=== PATIENT | female | born 1940 | race Caucasian/White ===

== ENCOUNTER 2017-11-17 07:54 | Outpatient (CLI) | payer OTHER, MEDICARE | END 2017-11-17 07:55 | disposition home or self-care (01) | LOC: BICMAMMO 07:54 | PROVIDERS: ATTEND Internal Medicine | DX: Z12.31 Encounter for screening mammogram for malignant neoplasm of breast (principal); N95.9 Unspecified menopausal and perimenopausal disorder; M85.80 Other specified disorders of bone density and structure, unspecified site | CPT/HCPCS: 77063; 77067; 77080 ==

== ENCOUNTER 2018-04-12 18:06 | Emergency (ER) | payer MEDICARE ==
[2018-04-12] MEDS ORDERED: Acetaminophen 325 MG TAB ONE (19:25)
== END 2018-04-12 19:29 | disposition home or self-care (01) ==
LOC: ERS 18:06
DX: M62.838 Other muscle spasm (principal); I10 Essential (primary) hypertension; Z79.899 Other long term (current) drug therapy
CPT/HCPCS: 99283

== ENCOUNTER 2018-06-17 21:01 | Emergency (ER) | payer MEDICARE | END 2018-06-17 21:55 | disposition home or self-care (01) | LOC: ERS 21:01 | DX: L30.3 Infective dermatitis (principal); I10 Essential (primary) hypertension; M19.90 Unspecified osteoarthritis, unspecified site; Z79.899 Other long term (current) drug therapy | CPT/HCPCS: 99282 ==

== ENCOUNTER 2018-09-03 05:27 | Emergency (ER) | payer MEDICARE | END 2018-09-03 06:17 | disposition home or self-care (01) | LOC: ERS 05:27 | DX: L30.4 Erythema intertrigo (principal); I10 Essential (primary) hypertension; M19.90 Unspecified osteoarthritis, unspecified site; Z79.899 Other long term (current) drug therapy | CPT/HCPCS: 36416; 99283 ==

== ENCOUNTER 2018-10-05 16:40 | Observation (INO) | payer MEDICARE ==
[~2018-10-05 16:40] MED LIST: ISOVUE-370 76%-LOCM 1 ML ONE
[2018-10-05 17:14] LABS: #Eosinphils 0.1 thou/uL (0.0-0.7); #Lymphocytes 1.1 thou/uL (1.20-3.40); #Monocytes 0.7 thou/uL (0.11-0.59); #Neutrophils 10.5 thou/uL (1.40-6.50); %Basophils 0.3 % (0.0-1.0); %Eosinophils 0.9 % (0.0-10.0); %Lymphocytes 8.7 % (21.0-51.0); %Monocytes 5.9 % (0.0-10.0); %Neutrophils 84.2 % (42.0-75.0); Hemoglobin 13.1 g/dL (12.0-16.0); Mean Corpuscular HGB CONC 33.3 g/dL (32.0-36.0); Mean Corpuscular Hemoglobin 30.1 pg (27.0-31.0); Mean Corpuscular Volume 90.3 fL (78.0-98.0); Mean Platelet Volume 9.1 fL (7.4-10.4); Platelet Count 219 thou/uL (130-400); RBC Distribution Width 13.3 % (11.5-14.5); Red Blood Cell (RBC) Count 4.34 mill/uL (4.20-5.40); White Blood Cell (WBC) Count 12.5 thou/uL (4.8-10.8)
[2018-10-05 17:34] LABS: ALT (SGPT) 7 U/L (8-55); AST (SGOT) 15 U/L (5-34); Albumin 3.6 g/dL (3.4-4.8); Alkaline Phosphatase 82 U/L (40-150); Anion Gap 12 mmol/L (10-20); BUN (Urea Nitrogen) 15 mg/dL (9.8-20.1); Bilirubin, Total 2.5 mg/dL (0.2-1.2); Calc. Creatinine Clearance 0 mL/min (70-130); Calcium 8.9 mg/dL (7.8-10.44); Carbon Dioxide 24 mmol/L (23-31); Chloride 105 mmol/L (98-107); Estimated GFR-MDRD 55; Globulin 3.2 g/dL (2.4-3.5); Glucose 106 mg/dL (83-110); Potassium 4.2 mmol/L (3.5-5.1); Protein, Total 6.8 g/dL (6.0-8.3); Sodium 137 mmol/L (136-145)
[2018-10-05] MEDS ORDERED: Morphine 4 MG/ML VIAL ONE (17:56)
[2018-10-05] MEDS ORDERED: Acetaminophen 500 MG TAB ONE (17:57)
[2018-10-05] MEDS ORDERED: Piperacillin/Tazobactam 3.375 GM VIAL ONE (17:57)
--- NOTE | 2018-10-05 18:30 | RAD ---
PORTABLE CHEST: 10/05/18 HISTORY: Back and neck pain as well as fever and cough. Heart size appears slightly enlarged. Mediastinal structures are unremarkable. Retrocardiac region is difficult to assess but no focal infiltrative process. IMPRESSION: Mild cardiomegaly. POS: [facility]
[2018-10-05 18:47] LABS: Lipase Less than 4 U/L (8-78); Magnesium 1.7 mg/dL (1.6-2.6)
--- NOTE | 2018-10-05 19:18 | CT ---
FCT abdomen and pelvis with IV contrast. Oral contrast was not administered. INDICATIONS: Abdominal pain COMPARISON: None FINDINGS: Lung bases are clear Liver, spleen, and pancreas appear unremarkable. Stomach and duodenum appear unremarkable. Adrenal glands appear normal. Kidneys appear unremarkable. Collecting structures and urinary bladder appear unremarkable. Small bowel loops are normal caliber and exhibit normal fold pattern. Appendix not identified. Colon is nondistended and poorly evaluated. Diverticulosis of the left colon and sigmoid noted. Aorta is normal caliber. No evidence of retroperitoneal or mesenteric adenopathy. Patient appears to be posthysterectomy. Subcutaneous tissues, abdominal wall, and muscular structures appear unremarkable. Osseous structures appear unremarkable. IMPRESSION: No acute findings
[2018-10-05 20:03] LABS: Bilirubin Small (Negative); Blood, Urine Negative (Negative); Clarity CLOUDY (Clear); Glucose, Urine (Dipstick) Negative (Negative); Leukocyte Small (Negative); Nitrite Negative (Negative); Protein, Urine (Dipstick) Trace mg/dL (Neg-Trace); Specific Gravity, Urine 1.037 (1.002-1.036); pH, Urine 5.5 (5.0-9.0)
[2018-10-05 20:05] LABS: Bacteria/HPF None Seen HPF (None Seen); Hyaline Casts/LPF 4-6 HYALINE CAST LPF (0-3 Hyaline); RBC/HPF 0-3 HPF (0-3)
[2018-10-05] MEDS ORDERED: Ondansetron PF 4 MG/2 ML Vial ONE (21:23)
[2018-10-06] MEDS ORDERED: Ondansetron ODT 4 MG TAB SL PRN (00:38)
[2018-10-06] MEDS ORDERED: Fentanyl 100 MCG/2 ML VIAL SLOW IVP PRN (00:38)
[2018-10-06] MEDS ORDERED: Ondansetron PF 4 MG/2 ML Vial IVP PRN ×2 (00:38→07:26)
[2018-10-06] MEDS ORDERED: Sodium Chloride 0.45% 1,000 ML IV SCH (00:45)
[2018-10-06 02:24] VITALS: BMI 44.9
[2018-10-06] MEDS ORDERED: Acetaminophen 325 MG TAB PO PRN (07:26)
[2018-10-06] MEDS ORDERED: Eucerin (Mineral Oil/Petrolatum,White) 30 gm Jar TOP PRN (07:26)
[2018-10-06] MEDS ORDERED: HYDROcodone/Acetaminophen 5/325 mg Tablet PO PRN (07:26)
[2018-10-06] MEDS ORDERED: Senokot S 8.6-50 MG TAB PO PRN (07:26)
[2018-10-06] MEDS ORDERED: Ondansetron ODT 4 MG TAB PO PRN (07:26)
[2018-10-06] MEDS ORDERED: Loratadine 10 MG TAB PO PRN (07:26)
[2018-10-06] MEDS ORDERED: Artificial Tears 18 DROP/0.9 ML EA EYE PRN (07:26)
[2018-10-06] MEDS ORDERED: Sodium Chloride 0.65% Nasal 44 ML BOT EA NARE PRN (07:26)
[2018-10-06] MEDS ORDERED: Calcium Carbonate 500 MG ChewTAB PO PRN (07:26)
[2018-10-06] MEDS ORDERED: Morphine 2 MG/ML SYRINGE SLOW IVP PRN ×2 (07:26→09:26)
[2018-10-06] MEDS ORDERED: Bisacodyl 10 MG SUPP PR PRN (07:26)
[2018-10-06] MEDS ORDERED: Zolpidem Tartrate 5 MG TAB PO PRN (07:26)
[2018-10-06] MEDS ORDERED: Diabetic Tussin 200 MG/10 ML UDCUP PO PRN (07:26)
[2018-10-06] MEDS ORDERED: hydrALAZINE 20 MG/ML VIAL SLOW IVP PRN (07:26)
[2018-10-06] MEDS ORDERED: Cepastat Lozenges 1 LOZ PO PRN (07:26)
[2018-10-06] MEDS ORDERED: Loperamide HCl 2 MG CAP PO PRN (07:26)
[2018-10-06] MEDS ORDERED: Sodium Chloride 0.9% 1,000 ML IV SCH (07:30)
[2018-10-06] MEDS: Nebivolol HCl 5 MG TAB PO SCH (08:52)
[2018-10-06] MEDS: Saccharomyces boulardii 250 MG CAP PO SCH (08:52)
[2018-10-06] MEDS: Famotidine 20 MG TAB PO SCH ×2 (08:52→21:14)
[2018-10-06] MEDS: Piperacillin/Tazobactam 3.375 GM in Sodium Chloride 0.9% 100 ML IVPB SCH ×3 (08:55→19:50)
[2018-10-06] MEDS: Sodium Chloride 0.9% 1,000 ML IV SCH ×2 (08:57→14:20)
[2018-10-06] MEDS ORDERED: Ketorolac Tromethamine 30 MG/ML VIAL IVP PRN (09:26)
--- NOTE | 2018-10-06 10:17 | HP ---
PRIMARY CARE PHYSICIAN: Vanessa Gan MD REASON FOR ADMISSION: Urinary tract infection. HISTORY OF PRESENT ILLNESS: A 78-year-old female, who has underlying history of diverticulosis, hypertension, osteoarthritis, who presented to emergency room for multiple complaints. She was having lower back pain, shoulder pain, and right side of neck pain. The patient also has very bad pain in her right knee. Because of all this pain, she was having difficulty with ambulation. She reports that she has osteoarthritis and she has chronic pain, but for last 1 week she is experiencing more pain. She also had episode of diarrhea at home and she was having vague abdominal discomfort, but she denies any particular point of left lower quadrant tenderness. She denies any bladder discomfort. She denies any CVA tenderness. She denies any chills or fever at home, but in the emergency room, when she presented at that time, her temperature was 101.5. She had CT abdomen and pelvis, which was unremarkable and her chest x-ray was unremarkable. Her urinalysis was suspected for UTI, but the patient does not have any UTI symptoms. In the emergency room, the patient has received Zosyn, morphine, Zofran, IV fluids, and Tylenol, and subsequently, she was admitted to medical floor for observation. This morning, the patient is still having similar vague musculoskeletal pain diffusely. Other than that, the patient does not have any new complaints. REVIEW OF SYSTEMS: CONSTITUTIONAL: Negative for weight loss or gain, ability to conduct usual activities. SKIN: Negative for rash, itching. EYES: Negative for double vision, pain. ENT/MOUTH: Negative for nose bleeding, neck stiffness, pain, tenderness. CARDIOVASCULAR: Negative for palpitations, dyspnea on exertion, orthopnea. RESPIRATORY: Negative for shortness of breath, wheezing, cough, hemoptysis, fever or night sweats. GASTROINTESTINAL: Negative for poor appetite, abdominal pain, heartburn, nausea, vomiting, constipation, or diarrhea. GENITOURINARY: Negative for urgency, frequency, dysuria, nocturia. MUSCULOSKELETAL: Negative for pain, swelling. NEUROLOGIC/PSYCHIATRIC: Negative for anxiety, depression. ALLERGY/IMMUNOLOGIC: Negative for skin rash, bleeding tendency. Please see my HPI for pertinent positive and negative. All other review of systems reviewed and negative except as mentioned in HPI. PAST MEDICAL HISTORY: Diverticulosis, history of herpes zoster, osteoarthritis, hypertension, morbid obesity with BMI 45, chronic low back pain. PAST SURGICAL HISTORY: Right knee replacement, hysterectomy, bladder suspension, appendicectomy, cholecystectomy, tonsillectomy. PAST PSYCHIATRIC HISTORY: Anxiety and depression. SOCIAL HISTORY: The patient is living at home by herself. No history of tobacco, alcohol, or illicit drug abuse. FAMILY HISTORY: No family history of coronary artery disease, stroke, or cancer. ALLERGIES: LISINOPRIL, GIVES ANAPHYLACTIC REACTION. CURRENT HOME MEDICATIONS: Bystolic 20 mg p.o. daily. EMERGENCY ROOM COURSE: The patient received Zofran, morphine, IV fluids, Tylenol, and Zosyn. PHYSICAL EXAMINATION: VITAL SIGNS: On arrival; blood pressure 171/77, pulse 85, respiratory rate 23, temperature 101.5, saturation 94% on room air, weight 106.5 kg. GENERAL: The patient is currently alert, oriented, no obvious acute distress. HEENT: Head; normocephalic, atraumatic. Eyes; pupils round, reactive to light. Extraocular muscle intact. ENT; oropharynx within normal limits. Moist mucous membranes. No oral lesion. No pharyngeal erythema. No exudate. NECK: Supple. No JVD. No thyromegaly. No carotid bruit. No jugular venous distention. LUNGS: Clear to auscultation without any rhonchi or rales. CARDIAC: S1 and S2 regular. No murmur. No gallop. No rub. ABDOMEN: Soft. Bowel sounds present. No tenderness in any quadrant including no tenderness in suprapubic area. BACK: No CVA tenderness. EXTREMITIES: Upper extremity passive movement of all joints are normal. Lower extremity, no edema. Good distal pulsation. MUSCULOSKELETAL EXAMINATION: The patient does have lower back tenderness, shoulder tenderness as well as knee tenderness, but no local abnormal examination finding other than just subjective discomfort and tenderness. NEUROLOGIC: Nonfocal examination. SKIN: No skin rash. HEMATOLOGICAL SYSTEM: No lymphadenopathy. SIGNIFICANT LABORATORY DATA: EKG showing normal sinus rhythm, within normal limits. Chest x-ray showing mild cardiomegaly. CT abdomen and pelvis showing no acute abdominal process. Significant labs; WBC 12.5, hemoglobin 13.1, platelet 219. BMP; sodium 137, potassium 4.2, chloride 105, carbon dioxide 24, BUN 15, creatinine 0.98, glucose 106, calcium 8.9, magnesium 1.7. Lactic acid 1.7, bilirubin 2.5, AST 15, ALT 7, alkaline phosphatase 82, albumin 3.6, lipase less than 4. Troponin 0.014. Urinalysis suggestive of UTI. Blood culture negative. Influenza negative. ASSESSMENT AND PLAN: 1. Sepsis. The patient has fever 101 on admission, leukocytosis, left shift. Source of infection is unclear, but suspecting urinary tract infection. On examination, the patient does not have any left lower quadrant tenderness. Does not suspect any diverticulitis, though she has a history of diverticulosis. Her chest x-ray is normal. Her flu screen is negative. At this point, we will continue with Zosyn, which was started in the emergency room. We will follow up on culture result. We will send urine culture as well. 2. Urinary tract infection. This is likely the cause of fever and sepsis criteria. We are continuing Zosyn and will follow up on culture result and on discharge, we will consider changing to fluoroquinolones. 3. Polyarthritis with polyarthralgia as well as history of osteoarthritis. We will check uric acid tomorrow and CRP tomorrow. We will control her pain with morphine and Toradol and we will consider PT/OT evaluation. This patient has osteoarthritis and this needs symptomatic treatment. Does not have any local pathology. 4. Hypertension. We will continue Bystolic 20 mg p.o. daily. 5. Morbid obesity with BMI of 45. Dietary education given. Weight loss education given. Healthy lifestyle measure discussed with the patient. 6. Deep venous thrombosis prophylaxis not needed, because we are expecting discharge in 24 to 48 hours. 7. Gastrointestinal prophylaxis. Pepcid 20 mg p.o. b.i.d. CODE STATUS: The patient is full code. The patient does not have any surrogate decision maker. DISPOSITION PLAN: The patient does not want to go to rehab and that is why in that case, we will consider discharging her home in 24 to 48 hours. Job ID: [id number]
[2018-10-07] MEDS: Piperacillin/Tazobactam 3.375 GM in Sodium Chloride 0.9% 100 ML IVPB SCH ×2 (01:58→08:15)
[2018-10-07 04:20] LABS: #Eosinphils 0.4 thou/uL (0.0-0.7); #Lymphocytes 1.3 thou/uL (1.20-3.40); #Monocytes 0.8 thou/uL (0.11-0.59); #Neutrophils 3.3 thou/uL (1.40-6.50); %Basophils 0.7 % (0.0-1.0); %Eosinophils 6.9 % (0.0-10.0); %Lymphocytes 21.7 % (21.0-51.0); %Neutrophils 56.7 % (42.0-75.0); Hemoglobin 11.8 g/dL (12.0-16.0); Mean Corpuscular HGB CONC 32.9 g/dL (32.0-36.0); Mean Corpuscular Hemoglobin 30.5 pg (27.0-31.0); Mean Corpuscular Volume 92.7 fL (78.0-98.0); Mean Platelet Volume 9.2 fL (7.4-10.4); Platelet Count 175 thou/uL (130-400); RBC Distribution Width 13.3 % (11.5-14.5); Red Blood Cell (RBC) Count 3.86 mill/uL (4.20-5.40); White Blood Cell (WBC) Count 5.8 thou/uL (4.8-10.8)
[2018-10-07 04:39] LABS: Anion Gap 9 mmol/L (10-20); BUN (Urea Nitrogen) 15 mg/dL (9.8-20.1); Calc. Creatinine Clearance 72 mL/min (70-130); Calcium 8.3 mg/dL (7.8-10.44); Carbon Dioxide 27 mmol/L (23-31); Chloride 110 mmol/L (98-107); Estimated GFR-MDRD 47; Glucose 91 mg/dL (83-110); Potassium 4.1 mmol/L (3.5-5.1); Sodium 142 mmol/L (136-145); Uric Acid 4.6 mg/dL (2.6-6.0)
[2018-10-07] MEDS: Sodium Chloride 0.9% 1,000 ML IV SCH (06:49)
[2018-10-07] MEDS: Famotidine 20 MG TAB PO SCH (08:18)
[2018-10-07] MEDS: Saccharomyces boulardii 250 MG CAP PO SCH (08:18)
[2018-10-07 09:17] VITALS: BP 154/90; TEMP 98.1
--- NOTE | 2018-10-07 10:12 | DIS ---
DATE OF ADMISSION: 10/05/2018 DATE OF DISCHARGE: 10/07/2018 PRIMARY CARE PHYSICIAN: Vanessa Gan MD. DISCHARGE DISPOSITION: Home. PRIMARY DISCHARGE DIAGNOSES: 1. Sepsis, resolved. 2. Urinary tract infection. SECONDARY DISCHARGE DIAGNOSES: 1. Osteoarthritis. 2. Morbid obesity. 3. Hypertension. 4. Chronic low back pain. PRIMARY PROCEDURE/OPERATION: None. RADIOLOGICAL INVESTIGATION: CT abdomen and pelvis, chest x-ray. SIGNIFICANT LABORATORY DATA: Hemoglobin 11.8. ESR 21. Creatinine 1.12. CRP 4.9. Urinalysis suggestive UTI. Blood culture negative. Influenza negative. Urine culture negative. DISCHARGE MEDICATIONS: New medication, Levaquin 750 mg p.o. daily. Florastor 250 mg p.o. daily for 5 days, Tylenol No.3 one or two tablets q.6 hourly p.r.n. for pain, and Bystolic 20 mg p.o. daily. CONTRAINDICATION: None. CODE STATUS: Full code. INPATIENT DETENTION DEPUTY: None. ALLERGIES: LISINOPRIL. DISCHARGE PLAN: Posthospital, the patient will follow up with primary care physician in 1 or 2 weeks. HOSPITAL COURSE: A 78-year-old female, who was admitted by me yesterday. Please see my HPI for further details. From emergency room, the patient was admitted for diverticulitis early, but clinically, the patient was not having any left lower quadrant pain and the patient reported to me no pain in her abdomen. Even she was not having any UTI symptoms, but her urinalysis was suspected for UTI. Initially when she came to emergency room, she was having leukocytosis and high-grade fever and that is why she was meeting sepsis criteria. The patient was afebrile while in the hospital. We treated her with Zosyn while in the hospital and she was given IV fluid. Upon discharge, we changed to levofloxacin. The patient's main problem was chronic low back pain and osteoarthritis pain, but this is chronic problem, and I advised the patient to follow up with primary care physician. I have given offering also giving Cymbalta medication, but she does not want to take those medication. Upon discharge, we prescribed Tylenol No.3. The patient is seen and examined at bedside today. Her examination is normal. Her labs are normal today. Discharge instruction given to the patient at bedside. Her physical examination is normal and her vitals are stable. All new medication prescription is sent to her pharmacy. Job ID: [id number]
--- NOTE | 2018-10-07 10:53 | PDOC.PN ---
- Subjective Encounter Start Date: 10/07/18 Encounter Start Time: 08:30 Patient seen and examined. No new complaints. No overnight events - Objective Resuscitation Status - Order Detail: 10/06/18 07:23 Resuscitation Status Routine Resuscitation Status: FULL: Full Resuscitation MAR Reviewed: Yes Vital Signs & Weight: Vital Signs (12 hours) Temp Pulse Resp BP BP BP Pulse Ox 10/07/18 08:00 98.1 F 60 18 154/90 H 154/90 H 92 L 10/07/18 03:47 97.7 F 58 L 16 148/78 H 92 L 10/06/18 23:42 98.1 F 63 12 140/68 93 L Weight Weight 246 lb I&O: 10/06/18 10/07/18 10/08/18 06:59 06:59 06:59 Intake Total 240 2009 137.5 Balance 240 2009 137.5 Result Diagrams: 10/07/18 04:09 10/07/18 04:09 Phys Exam - Physical Examination Constitutional: NAD HEENT: PERRLA, moist MMs, sclera anicteric Neck: no JVD, supple Respiratory: no wheezing, no rales, no rhonchi Cardiovascular: RRR, no significant murmur, no rub Gastrointestinal: soft, non-tender, no distention, positive bowel sounds Musculoskeletal: no edema, pulses present Neurological: non-focal, normal sensation, moves all 4 limbs Psychiatric: normal affect, A&O x 3 Dx/Plan (1) Sepsis Code(s): A41.9 - SEPSIS, UNSPECIFIED ORGANISM Status: Acute (2) UTI (urinary tract infection) Status: Acute (3) Chronic low back pain Code(s): M54.5 - LOW BACK PAIN; G89.29 - OTHER CHRONIC PAIN Status: Chronic (4) Hypertension Code(s): I10 - ESSENTIAL (PRIMARY) HYPERTENSION Status: Chronic (5) Morbid obesity with BMI of 45.0-49.9, adult Code(s): E66.01 - MORBID (SEVERE) OBESITY DUE TO EXCESS CALORIES; Z68.42 - BODY MASS INDEX (BMI) 45.0-49.9, ADULT Status: Chronic (6) Osteoarthritis Code(s): M19.90 - UNSPECIFIED OSTEOARTHRITIS, UNSPECIFIED SITE Status: Chronic - Plan cont current plan of care, continue antibiotics * medication reviewed as below * symptomatic treatment * see discharge selina. Review of Systems - Review of Systems ENT: negative: Ear Pain, Ear Discharge, Nose Pain, Nose Discharge, Nose Congestion, Mouth Pain, Mouth Swelling, Throat Pain, Throat Swelling, Other Respiratory: negative: Cough, Dry, Shortness of Breath, Hemoptysis, SOB with Excertion, Pleuritic Pain, Sputum, Wheezing Cardiovascular: negative: chest pain, palpitations, orthopnea, paroxysmal nocturnal dyspnea, edema, light headedness, other Gastrointestinal: negative: Nausea, Vomiting, Abdominal Pain, Diarrhea, Constipation, Melena, Hematochezia, Other Genitourinary: negative: Dysuria, Frequency, Incontinence, Hematuria, Retention , Other Musculoskeletal: negative: Neck Pain, Shoulder Pain, Arm Pain, Back Pain, Hand Pain, Leg Pain, Foot Pain, Other - Medications/Allergies Allergies/Adverse Reactions: Allergies Allergy/AdvReac Type Severity Reaction Status Date / Time lisinopril [From Zestril] Allergy Verified 10/06/18 03:48 Medications: Current Medications Acetaminophen (Tylenol) 650 mg PO Q4H PRN PRN Reason: Headache/Fever/Mild Pain (1-3) Last Admin: 10/06/18 13:39 Dose: 650 mg Hydrocodone Bitart/Acetaminophen ([place] 5/325) 1 tab PO Q4H PRN PRN Reason: Moderate Pain (4-6) Artificial Tears (Tears Naturale) 2 drop EA EYE PRN PRN PRN Reason: Dry Eyes Bisacodyl (Dulcolax) 10 mg RI DAILYPRN PRN PRN Reason: Constipation Calcium Carbonate (Tums) 1,000 mg PO Q4H PRN PRN Reason: Heartburn or Indigestion Famotidine (Pepcid) 20 mg PO BID [facility] Last Admin: 10/07/18 08:18 Dose: 20 mg Guaifenesin (Robitussin Sf) 200 mg PO Q4H PRN PRN Reason: Cough Hydralazine HCl (Apresoline) 10 mg SLOW IVP Q4H PRN PRN Reason: SBP > 180 and HR < 70 Piperacillin Sod/Tazobactam (Sod 3.375 gm/ Sodium Chloride) 100 mls @ 200 mls/ hr IVPB 0200,0800,1400,2000 [facility] Last Admin: 10/07/18 08:15 Dose: 100 mls Ketorolac Tromethamine (Toradol) 15 mg IVP Q6H PRN PRN Reason: Pain Stop: 10/11/18 09:27 Loperamide HCl (Imodium) 2 mg PO PRN PRN PRN Reason: Diarrhea/Loose Stools Loratadine (Claritin) 10 mg PO DAILYPRN PRN PRN Reason: Sinus Symptoms Mineral Oil/White Petrolatum (Eucerin Cream) 0 gm TOP BIDPRN PRN PRN Reason: Dry Skin Morphine Sulfate (Morphine) 2 mg SLOW IVP Q4H PRN PRN Reason: Severe Pain (7-10) Morphine Sulfate (Morphine) 2 mg SLOW IVP Q4H PRN PRN Reason: Pain Nebivolol (Bystolic) 20 mg PO DAILY [facility] Last Admin: 10/06/18 08:52 Dose: 20 mg Ondansetron HCl (Zofran Odt) 4 mg PO Q6H PRN PRN Reason: Nausea/Vomiting Last Admin: 10/07/18 10:01 Dose: 4 mg Ondansetron HCl (Zofran) 4 mg IVP Q6H PRN PRN Reason: Nausea/Vomiting Saccharomyces Boulardii (Florastor) 250 mg PO DAILY [facility] Last Admin: 10/07/18 08:18 Dose: 250 mg Senna/Docusate Sodium (Senokot S) 2 tab PO BID PRN PRN Reason: Constipation Sodium Chloride ([place] Nasal [place] 0.65%) 0 ml EA NARE QIDPRN PRN PRN Reason: Nasal Congestion Throat Lozenges (Cepastat Lozenges) 1 mary PO Q2H PRN PRN Reason: Sore Throat Zolpidem Tartrate (Ambien) 5 mg PO HSPRN PRN PRN Reason: Insomnia
[2018-10-07] MEDS: Nebivolol HCl 5 MG TAB PO SCH (11:35)
== END 2018-10-07 11:42 | disposition home or self-care (01) ==
LOC: ERS 16:40 → ONC 21:57
PROVIDERS: ADMIT Hospitalist; ATTEND Hospitalist
DX: A41.9 Sepsis, unspecified organism (principal); N39.0 Urinary tract infection, site not specified; I10 Essential (primary) hypertension; M19.90 Unspecified osteoarthritis, unspecified site; K57.90 Diverticulosis of intestine, part unspecified, without perforation or abscess without bleeding; G89.29 Other chronic pain; M54.5 Low back pain; F41.9 Anxiety disorder, unspecified; F32.9 Major depressive disorder, single episode, unspecified; E66.01 Morbid (severe) obesity due to excess calories; Z68.42 Body mass index [BMI] 45.0-49.9, adult; Z79.899 Other long term (current) drug therapy; Z88.8 Allergy status to other drugs, medicaments and biological substances
CPT/HCPCS: 71045; 74177; 80048; 80053; 82248; 83605; 83690; 83735; 84484; 84550; 85025 ×2; 85652; 86140; 87040; 87086; 87804 ×2; 93005; 96361 ×3; 96365; 96366 ×2; 96375; 97139; 99285; G0378 ×2; 36415; 81003; 81015; J2270; J2405; J2543; J7050; Q0162; Q9966

== ENCOUNTER 2018-12-22 11:26 | Emergency (ER) | payer MEDICARE ==
--- NOTE | 2018-12-22 13:09 | RAD ---
PA AND LATERAL VIEWS OF THE CHEST: HISTORY: Cough. FINDINGS: Exam is made with the exam of 10/05/2018. The heart is enlarged. The aorta is tortuous. The lungs are expanded without focal areas of consoli dation, pneumothoraces, mariam pulmonary edema, or pleural effusions. There are degenerative changes in the spine. IMPRESSION: No radiographic evidence of acute cardiopulmonary process. POS: [facility]
[2018-12-22 13:21] LABS: #Basophils 0.1 thou/uL (0.0-0.2); #Eosinphils 0.4 thou/uL (0.0-0.7); #Lymphocytes 1.8 thou/uL (1.20-3.40); #Monocytes 0.8 thou/uL (0.11-0.59); %Basophils 0.6 % (0.0-1.0); %Eosinophils 4.2 % (0.0-10.0); %Lymphocytes 20.2 % (21.0-51.0); %Monocytes 8.8 % (0.0-10.0); %Neutrophils 66.2 % (42.0-75.0); Hemoglobin 13.2 g/dL (12.0-16.0); Mean Corpuscular HGB CONC 32.4 g/dL (32.0-36.0); Mean Corpuscular Hemoglobin 29.9 pg (27.0-31.0); Mean Corpuscular Volume 92.2 fL (78.0-98.0); Mean Platelet Volume 8.9 fL (7.4-10.4); Platelet Count 244 thou/uL (130-400); RBC Distribution Width 13.5 % (11.5-14.5); Red Blood Cell (RBC) Count 4.42 mill/uL (4.20-5.40)
[2018-12-22 13:42] LABS: ALT (SGPT) 10 U/L (8-55); AST (SGOT) 14 U/L (5-34); Albumin 3.7 g/dL (3.4-4.8); Alkaline Phosphatase 85 U/L (40-150); Anion Gap 12 mmol/L (10-20); BUN (Urea Nitrogen) 16 mg/dL (9.8-20.1); Bilirubin, Total 1.8 mg/dL (0.2-1.2); CK (CPK) 111 U/L (29-168); Calc. Creatinine Clearance 0 mL/min (70-130); Calcium 9.1 mg/dL (7.8-10.44); Carbon Dioxide 25 mmol/L (23-31); Chloride 106 mmol/L (98-107); Estimated GFR-MDRD 62; Globulin 3.2 g/dL (2.4-3.5); Glucose 87 mg/dL (83-110); Potassium 4.1 mmol/L (3.5-5.1); Protein, Total 6.9 g/dL (6.0-8.3); Sodium 139 mmol/L (136-145)
== END 2018-12-22 15:21 | disposition home or self-care (01) ==
LOC: ERS 11:26
DX: J06.9 Acute upper respiratory infection, unspecified (principal); I10 Essential (primary) hypertension; M19.90 Unspecified osteoarthritis, unspecified site; F41.9 Anxiety disorder, unspecified; F32.9 Major depressive disorder, single episode, unspecified; Z79.899 Other long term (current) drug therapy
CPT/HCPCS: 36415; 71046; 80053; 82550; 83880; 84484; 85025; 87081; 87430; 93005; 94640; J7620

== ENCOUNTER 2019-05-14 13:19 | Inpatient (IN) | payer MEDICARE ==
[~2019-05-14 13:19] MED LIST changes: -ISOVUE-370 76%-LOCM 1 ML ONE; +Iopamidol 370 76% 100 ML VIAL ONE
[2019-05-14 15:36] LABS: #Basophils 0.1 thou/uL (0.0-0.2); #Eosinphils 0.3 thou/uL (0.0-0.7); #Lymphocytes 1.5 thou/uL (1.20-3.40); #Monocytes 1.2 thou/uL (0.11-0.59); #Neutrophils 8.9 thou/uL (1.40-6.50); %Basophils 0.5 % (0.0-1.0); %Eosinophils 2.5 % (0.0-10.0); %Lymphocytes 12.6 % (21.0-51.0); %Monocytes 10.3 % (0.0-10.0); Hemoglobin 12.9 g/dL (12.0-16.0); Mean Corpuscular HGB CONC 33.7 g/dL (32.0-36.0); Mean Corpuscular Hemoglobin 30.8 pg (27.0-31.0); Mean Corpuscular Volume 91.4 fL (78.0-98.0); Mean Platelet Volume 8.8 fL (7.4-10.4); Platelet Count 247 thou/uL (130-400); RBC Distribution Width 12.7 % (11.5-14.5); Red Blood Cell (RBC) Count 4.18 mill/uL (4.20-5.40)
[2019-05-14 15:59] LABS: ALT (SGPT) 8 U/L (8-55); AST (SGOT) 12 U/L (5-34); Albumin 3.6 g/dL (3.4-4.8); Alkaline Phosphatase 100 U/L (40-110); Anion Gap 9 mmol/L (10-20); BUN (Urea Nitrogen) 15 mg/dL (9.8-20.1); Bilirubin, Total 2.2 mg/dL (0.2-1.2); Calc. Creatinine Clearance 0 mL/min (70-130); Calcium 9.1 mg/dL (7.8-10.44); Carbon Dioxide 28 mmol/L (23-31); Chloride 107 mmol/L (98-107); Estimated GFR-MDRD 52; Globulin 3.2 g/dL (2.4-3.5); Glucose 110 mg/dL (83-110); Lipase 6 U/L (8-78); Potassium 3.7 mmol/L (3.5-5.1); Protein, Total 6.8 g/dL (6.0-8.3); Sodium 140 mmol/L (136-145)
--- NOTE | 2019-05-14 18:03 | CT ---
CT Abdomen Pelvis W Con: 05/14/2019 5:10 PM CLINICAL INFORMATION: Abdominal pain COMPARISON: 10/05/2018 TECHNIQUE: Multiple contiguous axial images were obtained and a CT of the abdomen and pelvis with IV contrast. C oronal and sagittal reformats were performed. FINDINGS: Lower Chest: within normal limits. Abdomen: Liver: within normal limits. Bile Ducts: Normal caliber. Gallbladder: Removed. Pancreas: within normal limits. Spleen: within normal limits. Adrenals: within normal limits. Kidneys: within normal limits. Pelvis: Reproductive Organs: Status post hysterectomy. Ureters: within normal limits. Bladder: within normal limits. Peritoneum: No ascites or free air, no fluid collection. Bowel: Normal caliber. Scattered diverticula in the colon. Stranding changes seen surrounding diverti cula in the lower sigmoid colon consistent with acute diverticulitis. Mesentery and Retroperitoneum: No enlarged mesenteric or retroperitoneal lymph nodes. Vessels: Atherosclerotic calcifications. Abdominal Wall: Small fat-containing ventral hernia just to the left of midline in the lower abdomina l wall. Bones: Degenerative changes in the spine. IMPRESSION: Acute diverticulitis
[2019-05-14] MEDS ORDERED: Morphine 4 MG/ML VIAL ONE (18:14)
[2019-05-14] MEDS ORDERED: metroNIDAZOLE 500 MG/100 ML BAG ONE (18:34)
[2019-05-14] MEDS ORDERED: Ondansetron PF 4 MG/2 ML Vial ONE (19:07)
[2019-05-14 19:14] LABS: Bilirubin Negative (Negative); Blood, Urine Negative (Negative); Clarity Clear (Clear); Glucose, Urine (Dipstick) Normal (Negative); Leukocyte Negative Leu/uL (Negative); Nitrite Negative (Negative); Protein, Urine (Dipstick) 10 mg/dL (Neg-Trace)
[2019-05-14 20:10] VITALS: BMI 43.3
[2019-05-14] MEDS ORDERED: hydrALAZINE 20 MG/ML VIAL SLOW IVP PRN (20:22)
[2019-05-14] MEDS ORDERED: Acetaminophen 325 MG TAB PO PRN (20:22)
[2019-05-14] MEDS ORDERED: Labetalol HCl 100 MG/20 ML VIAL SLOW IVP PRN (20:22)
--- NOTE | 2019-05-14 21:09 | HP ---
PRIMARY CARE PHYSICIAN: The patient currently does not have a primary care physician. CHIEF COMPLAINT: "I have diverticulitis." HISTORY OF PRESENT ILLNESS: Ms. Farris is a 78-year-old female who has a history of hypertension, previous history of diverticulosis, and obesity. She was in her usual state of health until about 3-4 days ago when she started having "a lot of pain in her lower abdomen and she also noted loose stools, she says it looks like coffee. She says she cannot really quantitate the pain. She says it "just hurts." She says the pain is worse when she has a bowel movement and she says she has never had the pain "this bad before." She also notes some nausea, but no vomiting. She says she has had no fever, but she has had occasional chills and she also notes some heartburn off and on, but otherwise no other complaints. As a result of the symptoms, she came to the ER for evaluation. In the ER, she was noted to have leukocytosis as well as CT scan findings consistent with diverticulitis and she is being admitted for further evaluation. REVIEW OF SYSTEMS: All systems were reviewed and are negative except for that mentioned in the history of present illness. PAST MEDICAL HISTORY: Significant for gastroesophageal reflux disease, diverticulosis, osteoarthritis, hypertension, obesity, and what sounds like a previous deep vein thrombosis. ALLERGIES: TO LISINOPRIL AND ZESTRIL, WHICH CAUSES TONGUE SWELLING. PAST SURGICAL HISTORY: She has had a hysterectomy, bladder suspension, cholecystectomy, tonsillectomy, and appendectomy. SOCIAL HISTORY: She does not want to be resuscitated. She is a DNAR. Her surrogate decision maker is her son, Oneil. She is a former smoker. She quit in 1979 and smoked for at least 20 years and 2 packs a day. She is and has 3 children, at least 6 grandchildren and she says multiple great grand children. FAMILY HISTORY: Significant for a sister who is diabetic and a brother who has heart disease. CURRENT MEDICATIONS: She says she is on Bystolic and aspirin. PHYSICAL EXAMINATION: GENERAL: She is alert and oriented. She appears to be in no acute distress. She is well developed and well nourished. VITAL SIGNS: Her blood pressure was elevated at 180/100, heart rate is in the 60s, respiratory rate is 16, and she is afebrile. HEENT: Pupils are equal, round, and reactive to light. Extraocular muscles are intact. Her sclerae anicteric. Throat, no erythema, no exudates. NECK: No adenopathy, no bruits. LUNGS: Clear to auscultation. There is no wheezing. No rales. No rhonchi. CARDIOVASCULAR: She has a normal S1 and S2. There is no S3 or S4. No murmurs, clicks or rubs. ABDOMEN: Obese, it is soft. She did have some both right and left lower quadrant tenderness. There is no rebound or guarding; however no organomegaly. EXTREMITIES: There is no clubbing or cyanosis. No edema. She does not have any joint effusions. She did have some mild crepitus. NEUROLOGIC: Cranial nerves are grossly intact. Her muscle strength is 5/5 in both upper and lower extremities. SKIN AND INTEGUMENT: She did have some varicose veins. No rash. LABORATORY DATA: White blood cell count is 12, hemoglobin 12.9, hematocrit is 38.2, and platelet count is 247. Sodium 140, potassium 3.7, chloride is 107, CO2 is 28, BUN is 15, creatinine 1.02, glucose is 110. ASSESSMENT: This is a pleasant 78-year-old female who presents with lower abdominal pain. She also has a leukocytosis and radiographic evidence consistent with diverticulitis. She will be admitted to the medical floor. We will start her on IV antibiotics, gentle IV hydration and since she has had some significant diarrhea, we will also check stool studies. 1. Hypertension. Her blood pressure appears to be elevated. We will go ahead and reconcile and restart her home medications as well as have p.r.n. medications available. 2. Significant history of smoking and she does have some periodic hypoxemia. She tells me that she has used inhalers in the past, but has never formally been diagnosed with any type of pulmonary disease. I suspect she may have some underlying chronic obstructive pulmonary disease or even obesity hypoventilation. We will have DuoNebs available as well as supplemental oxygen and encourage her to likely get an outpatient pulmonary function test and even consider an outpatient sleep study. 3. The patient will be placed on both deep venous thrombosis and gastrointestinal prophylaxis. Job ID: [id number]
[2019-05-14] MEDS: Famotidine 20 MG TAB PO SCH (21:13)
[2019-05-15] MEDS: metroNIDAZOLE 500 MG in Premix Bag 1 BAG IVPB SCH ×3 (01:51→17:14)
[2019-05-15 06:17] LABS: #Basophils 0.1 thou/uL (0.0-0.2); #Eosinphils 0.3 thou/uL (0.0-0.7); #Lymphocytes 1.6 thou/uL (1.20-3.40); #Neutrophils 7.1 thou/uL (1.40-6.50); %Basophils 0.6 % (0.0-1.0); %Lymphocytes 15.7 % (21.0-51.0); %Monocytes 9.5 % (0.0-10.0); %Neutrophils 71.3 % (42.0-75.0); Hemoglobin 11.3 g/dL (12.0-16.0); Mean Corpuscular HGB CONC 33.2 g/dL (32.0-36.0); Mean Corpuscular Hemoglobin 30.4 pg (27.0-31.0); Mean Corpuscular Volume 91.6 fL (78.0-98.0); Mean Platelet Volume 9.1 fL (7.4-10.4); Platelet Count 210 thou/uL (130-400); RBC Distribution Width 12.7 % (11.5-14.5); Red Blood Cell (RBC) Count 3.73 mill/uL (4.20-5.40)
[2019-05-15 06:36] LABS: Anion Gap 11 mmol/L (10-20); BUN (Urea Nitrogen) 12 mg/dL (9.8-20.1); Calc. Creatinine Clearance 92 mL/min (70-130); Calcium 8.2 mg/dL (7.8-10.44); Carbon Dioxide 23 mmol/L (23-31); Chloride 108 mmol/L (98-107); Estimated GFR-MDRD 65; Glucose 94 mg/dL (83-110); Potassium 3.8 mmol/L (3.5-5.1); Sodium 138 mmol/L (136-145)
[2019-05-15] MEDS: Amlodipine 5 MG TAB PO SCH (08:10)
[2019-05-15] MEDS: Nebivolol HCl 5 MG TAB PO SCH (08:11)
[2019-05-15] MEDS: Famotidine 20 MG TAB PO SCH ×2 (08:11→19:28)
[2019-05-15] MEDS: Saccharomyces boulardii 250 MG CAP PO SCH (08:11)
[2019-05-15] MEDS: Enoxaparin Sodium 40 MG/0.4 ML SYRINGE SC SCH (08:12)
[2019-05-15] MEDS ORDERED: FLU VACC TS2019-20(65YR UP)/PF 180 MCG/0.5 ML SYRINGE IM ONE (09:00)
--- NOTE | 2019-05-15 14:27 | PDOC.HOSPP ---
- Subjective Encounter Date: 05/15/19 Encounter Time: 14:26 Subjective: Ms. Farris was seen today in follow-up of diverticulitis. She says the abdominal pain has improved. She still has some nausea, otherwise she is ok. - Objective Vital Signs & Weight: Vital Signs (12 hours) Temp Pulse Resp BP BP Pulse Ox 05/15/19 08:26 94 L 05/15/19 08:10 63 164/72 H 05/15/19 07:52 98.4 F 63 20 164/72 H 94 L 05/15/19 04:00 98.3 F 65 16 174/69 H 93 L Weight Admit Weight 237 lb Weight 237 lb I&O: 05/14/19 05/15/19 05/16/19 06:59 06:59 06:59 Intake Total 430 Output Total 300 Balance 130 Result Diagrams: 05/15/19 06:00 05/15/19 06:00 Hospitalist ROS - Medication Medications: Active Medications Generic Name Dose Route Start Last Admin Trade Name Freq PRN Reason Stop Dose Admin Amlodipine Besylate 5 mg 05/15/19 09:00 05/15/19 08:10 Norvasc PO 5 mg DAILY AMANDA Administration Enoxaparin Sodium 40 mg 05/15/19 09:00 05/15/19 08:12 Lovenox SC 40 mg 0900 AMANDA Administration Famotidine 20 mg 05/14/19 21:00 05/15/19 08:11 Pepcid PO 20 mg BID AMANDA Administration Ciprofloxacin/Dextrose 400 mg/ 200 mls @ 200 mls/hr 05/14/19 21:00 05/15/19 08:12 Device IVPB 200 mls Q12HR AMANDA Administration Metronidazole 500 mg/ Device 100 mls @ 100 mls/hr 05/15/19 02:00 05/15/19 10: 10 IVPB 100 mls 0200,1000,1800 AMANDA Administration Nebivolol 20 mg 05/15/19 09:00 05/15/19 08:11 Bystolic PO 20 mg DAILY AMANDA Administration Saccharomyces Boulardii 250 mg 05/15/19 09:00 05/15/19 08:11 Florastor PO 250 mg DAILY AMANDA Administration Sodium Chloride 10 ml 05/14/19 21:00 05/15/19 08:13 Flush - Normal Saline IVF 10 ml Q12HR AMANDA Administration Sodium Chloride 10 ml 05/14/19 20:35 05/15/19 10:11 Flush - Normal Saline IVF 10 ml PRN PRN Administration Saline Flush - Exam Eye: PERRL, anicteric sclera Heart: RRR, no murmur, no gallops, no rubs, normal peripheral pulses Respiratory: CTAB, no wheezes, no rales, no ronchi, normal chest expansion Gastrointestinal: soft, normal bowel sounds, no palpable masses, tender to palpation (+ Mild abdominal tenderness) Extremities: 1+ LE edema Hosp A/P (1) Diverticulitis Code(s): K57.92 - DVTRCLI OF INTEST, PART UNSP, W/O PERF OR ABSCESS W/O BLEED Status: Acute (2) Chronic low back pain Code(s): M54.5 - LOW BACK PAIN; G89.29 - OTHER CHRONIC PAIN Status: Chronic (3) Hypertension Code(s): I10 - ESSENTIAL (PRIMARY) HYPERTENSION Status: Chronic (4) Morbid obesity with BMI of 45.0-49.9, adult Code(s): E66.01 - MORBID (SEVERE) OBESITY DUE TO EXCESS CALORIES; Z68.42 - BODY MASS INDEX (BMI) 45.0-49.9, ADULT Status: Chronic - Plan * Diverticulitis- continue Cipro and Flagyl- clinically she is improving * HTN- blood pressure is a bit elevated- will add Amlodipine * Possible Obesity Hypoventilation Syndrome- discussed with the patient's granddaughter- recommend out patient sleep study * Likely home tomorrow
[2019-05-15] MEDS: Promethazine 25 MG TAB PO PRN (19:28)
[2019-05-16] MEDS: metroNIDAZOLE 500 MG in Premix Bag 1 BAG IVPB SCH ×3 (01:51→17:25)
[2019-05-16 07:26] VITALS: BP 168/69; TEMP 98.7
[2019-05-16] MEDS: Amlodipine 5 MG TAB PO SCH (07:53)
[2019-05-16] MEDS: Saccharomyces boulardii 250 MG CAP PO SCH (07:53)
[2019-05-16] MEDS: Famotidine 20 MG TAB PO SCH (07:53)
[2019-05-16] MEDS: Enoxaparin Sodium 40 MG/0.4 ML SYRINGE SC SCH (07:53)
[2019-05-16] MEDS: Nebivolol HCl 5 MG TAB PO SCH (09:13)
[2019-05-16] MEDS ORDERED: Milk Of Magnesia 30 ML UDCUP PO PRN (10:32)
--- NOTE | 2019-05-16 10:36 | PDOC.HOSPP ---
- Subjective Encounter Date: 05/16/19 Encounter Time: 10:33 Subjective: Ms. Ruano was seen today in follow-up of Diverticulitis. She has less abdominal pain, and no diarrhea. She notes some bloating. - Objective Vital Signs & Weight: Vital Signs (12 hours) Temp Pulse Resp BP Pulse Ox 05/16/19 07:53 62 05/16/19 07:26 98.7 F 62 18 168/69 H 92 L Weight Admit Weight 237 lb Weight 237 lb I&O: 05/15/19 05/16/19 05/17/19 06:59 06:59 06:59 Intake Total 430 855 Output Total 300 Balance 130 855 Result Diagrams: 05/15/19 06:00 05/15/19 06:00 Hospitalist ROS - Medication Medications: Active Medications Generic Name Dose Route Start Last Admin Trade Name Freq PRN Reason Stop Dose Admin Amlodipine Besylate 5 mg 05/15/19 09:00 05/16/19 07:53 Norvasc PO 5 mg DAILY AMANDA Administration Enoxaparin Sodium 40 mg 05/15/19 09:00 05/16/19 07:53 Lovenox SC 40 mg 0900 AMANDA Administration Famotidine 20 mg 05/14/19 21:00 05/16/19 07:53 Pepcid PO 20 mg BID AMANDA Administration Ciprofloxacin/Dextrose 400 mg/ 200 mls @ 200 mls/hr 05/14/19 21:00 05/16/19 09:16 Device IVPB 200 mls Q12HR AMANDA Administration Metronidazole 500 mg/ Device 100 mls @ 100 mls/hr 05/15/19 02:00 05/16/19 09: 15 IVPB 100 mls 0200,1000,1800 AMANDA Administration Nebivolol 20 mg 05/15/19 09:00 05/16/19 09:13 Bystolic PO 20 mg DAILY AMANDA Administration Promethazine HCl 25 mg 05/15/19 18:41 05/15/19 19:28 Phenergan PO 25 mg Q4H PRN Administration Nausea Saccharomyces Boulardii 250 mg 05/15/19 09:00 05/16/19 07:53 Florastor PO 250 mg DAILY AMANDA Administration Sodium Chloride 10 ml 05/14/19 21:00 05/16/19 07:57 Flush - Normal Saline IVF 10 ml Q12HR AMANDA Administration Sodium Chloride 10 ml 05/14/19 20:35 05/15/19 17:15 Flush - Normal Saline IVF 10 ml PRN PRN Administration Saline Flush - Exam Eye: PERRL Heart: RRR, no murmur, no gallops, no rubs, normal peripheral pulses Respiratory: CTAB, no wheezes, no rales, no ronchi, normal chest expansion, no tachypnea, normal percussion Gastrointestinal: soft, non-tender, non-distended, normal bowel sounds, no palpable masses Extremities: no cyanosis, no edema Hosp A/P (1) Diverticulitis Code(s): K57.92 - DVTRCLI OF INTEST, PART UNSP, W/O PERF OR ABSCESS W/O BLEED Status: Acute (2) Chronic low back pain Code(s): M54.5 - LOW BACK PAIN; G89.29 - OTHER CHRONIC PAIN Status: Chronic (3) Hypertension Code(s): I10 - ESSENTIAL (PRIMARY) HYPERTENSION Status: Chronic (4) Morbid obesity with BMI of 45.0-49.9, adult Code(s): E66.01 - MORBID (SEVERE) OBESITY DUE TO EXCESS CALORIES; Z68.42 - BODY MASS INDEX (BMI) 45.0-49.9, ADULT Status: Chronic - Plan * Diverticulitis- improved- will transition her to oral antibiotics * Constipation- will treat symptomatically * HTN- blood pressure is a bit elevated- continue Amlodipine, but can continue titration as an outpatient * Possible Obesity Hypoventilation Syndrome- discussed with the patient's granddaughter- recommend out patient sleep study * Hopefully home this afternoon
[2019-05-16] MEDS ORDERED: Polyethylene Glycol 3350 17 GM Packet PO PRN (10:38)
[2019-05-16] MEDS: Promethazine 25 MG TAB PO PRN (12:49)
--- NOTE | 2019-05-17 00:18 | DIS ---
DATE OF ADMISSION: 05/14/2019 DATE OF DISCHARGE: 05/16/2019 PRIMARY CARE PHYSICIAN: She does not have a primary care physician. DISCHARGE DISPOSITION: Home. DISCHARGE DIAGNOSES: 1. Diverticulitis. 2. Hypertension. 3. Obesity. 4. Probable obesity hypoventilation syndrome. DISCHARGE MEDICATIONS: 1. Flagyl 500 mg p.o. t.i.d. for 7 days. 2. Cipro 500 mg p.o. twice a day for 7 days. 3. Amlodipine 5 mg p.o. daily was added. 4. She is to continue Bystolic 20 mg daily. PROCEDURES DONE DURING THE ADMISSION: The patient had a CT scan of the abdomen and pelvis, which demonstrated some inflammation within the colon and fat stranding consistent with diverticulitis. CODE STATUS: DNAR. ALLERGIES: LISINOPRIL. HOSPITAL COURSE: Ms. Farris is a pleasant 78-year-old female who was admitted to the hospital after having lower abdominal pain and she reports diarrhea. She was found to have a slight elevation in her white count and CT evidence consistent with diverticulitis. She was admitted and started on IV antibiotics. She improved over the course of the next couple of days. I spoke with her granddaughter to update her on her condition. I had some concerns that the patient could be depressed and her granddaughter expressed to me that she had already been offered antidepressants and prescribed them and refused to take them. I was also concerned that she could have obesity hypoventilation syndrome due to some hypoxic events she had in the ER. She said that she refused to do a sleep study. I expressed that she should try following up on these things. They plan to try to find her a new primary care physician hopefully, who could be more encouraging for the patient to be more compliant. Otherwise, the patient is clinically stable, afebrile, tolerating a solid diet. There has been no diarrhea and therefore, can be discharged home. Job ID: [id number]
== END 2019-05-16 18:25 | disposition home or self-care (01) | DRG 392 ==
LOC: ERS 13:19 → T4-A 19:44
PROVIDERS: ADMIT Internal Medicine; ATTEND Internal Medicine
DX: K57.32 Diverticulitis of large intestine without perforation or abscess without bleeding (principal); E66.2 Morbid (severe) obesity with alveolar hypoventilation; Z68.41 Body mass index [BMI] 40.0-44.9, adult; Z66 Do not resuscitate; I10 Essential (primary) hypertension; K21.9 Gastro-esophageal reflux disease without esophagitis; M19.90 Unspecified osteoarthritis, unspecified site; G89.29 Other chronic pain; M54.9 Dorsalgia, unspecified; Z09 Encounter for follow-up examination after completed treatment for conditions other than malignant neoplasm; Z90.710 Acquired absence of both cervix and uterus; Z90.49 Acquired absence of other specified parts of digestive tract; Z88.8 Allergy status to other drugs, medicaments and biological substances
CPT/HCPCS: 36415; 74177; 80048; 80053; 81003; 82550; 83630; 83690; 85025; 87328; 87329; 87427; 87449; 96365; 96368; 96375; J0744; J1650; J1956; J2270; J2405; Q0169; Q9967

== ENCOUNTER 2019-08-27 19:06 | Emergency (ER) | payer MEDICARE | END 2019-08-27 19:47 | disposition home or self-care (01) | LOC: ERS 19:06 | DX: R04.0 Epistaxis (principal); L01.00 Impetigo, unspecified; I10 Essential (primary) hypertension; M19.90 Unspecified osteoarthritis, unspecified site; F41.9 Anxiety disorder, unspecified; F32.9 Major depressive disorder, single episode, unspecified; Z79.899 Other long term (current) drug therapy | CPT/HCPCS: 99283 ==

== ENCOUNTER 2019-09-23 08:42 | Emergency (ER) | payer MEDICARE ==
--- NOTE | 2019-09-23 10:45 | CT ---
CT BRAIN WITHOUT CONTRAST: Date: 09/23/2019 INDICATION: 79-year-old female with mechanical fall in shower with head injury. COMPARISON: None. FINDINGS: There is moderate to severe chronic small vessel white matter ischemic change with remote lacunar inf arct involving the right thalamus. There are remote cortically based infarcts involving the superior and lower pole of the right cerebellar hemisphere. No acute infarct, hemorrhage, or hydrocephalus is present. There is partial effusion of the right mastoid air cells. Visualized paranasal sinuses are c lear. Skull is intact. IMPRESSION: 1. No acute intracranial abnormality. 2. Chronic ischemic changes as above. 3. Partial effusion of right mastoid air cells. POS: BH
[2019-09-23 10:49] LABS: #Basophils 0.1 thou/uL (0.0-0.2); #Eosinphils 0.3 thou/uL (0.0-0.7); #Lymphocytes 1.6 thou/uL (1.20-3.40); #Monocytes 0.9 thou/uL (0.11-0.59); #Neutrophils 5.9 thou/uL (1.40-6.50); %Basophils 0.8 % (0.0-1.0); %Eosinophils 3.7 % (0.0-10.0); %Lymphocytes 18.3 % (21.0-51.0); %Monocytes 10.2 % (0.0-10.0); %Neutrophils 67.1 % (42.0-75.0); Hemoglobin 13.5 g/dL (12.0-16.0); Mean Corpuscular HGB CONC 32.6 g/dL (32.0-36.0); Mean Corpuscular Hemoglobin 30.2 pg (27.0-31.0); Mean Corpuscular Volume 92.7 fL (78.0-98.0); Mean Platelet Volume 9.7 fL (7.4-10.4); Platelet Count 237 thou/uL (130-400); RBC Distribution Width 13.5 % (11.5-14.5); Red Blood Cell (RBC) Count 4.46 mill/uL (4.20-5.40); White Blood Cell (WBC) Count 8.8 thou/uL (4.8-10.8)
[2019-09-23 11:09] LABS: Anion Gap 15 mmol/L (10-20); BUN (Urea Nitrogen) 17 mg/dL (9.8-20.1); Calc. Creatinine Clearance 0 mL/min (70-130); Carbon Dioxide 24 mmol/L (23-31); Chloride 106 mmol/L (98-107); Estimated GFR-MDRD 62; Glucose 90 mg/dL (83-110); Potassium 4.4 mmol/L (3.5-5.1); Sodium 141 mmol/L (136-145)
== END 2019-09-23 11:50 | disposition home or self-care (01) ==
LOC: ERS 08:42
DX: I10 Essential (primary) hypertension (principal); E78.00 Pure hypercholesterolemia, unspecified; E78.5 Hyperlipidemia, unspecified; M10.9 Gout, unspecified; M19.90 Unspecified osteoarthritis, unspecified site; W18.2XXA Fall in (into) shower or empty bathtub, initial encounter
CPT/HCPCS: 36415; 70450; 80048; 84484; 85025; 93005

== ENCOUNTER 2020-05-04 10:01 | Emergency (ER) | payer MEDICARE, OTHER ==
[2020-05-04] MEDS ORDERED: Dicyclomine 20 MG TAB ONE (10:50)
[2020-05-04] MEDS ORDERED: Ondansetron PF 4 MG/2 ML Vial ONE (10:50)
[2020-05-04 11:10] LABS: #Eosinphils 0.1 thou/uL (0.0-0.7); #Monocytes 0.4 thou/uL (0.11-0.59); #Neutrophils 1.8 thou/uL (1.40-6.50); %Basophils 0.8 % (0.0-1.0); %Eosinophils 3.4 % (0.0-10.0); %Lymphocytes 29.7 % (21.0-51.0); %Monocytes 12.7 % (0.0-10.0); %Neutrophils 53.4 % (42.0-75.0); Hemoglobin 14.4 g/dL (12.0-16.0); Mean Corpuscular HGB CONC 33.4 g/dL (32.0-36.0); Mean Corpuscular Hemoglobin 30.9 pg (27.0-31.0); Mean Corpuscular Volume 92.6 fL (78.0-98.0); Mean Platelet Volume 9.9 fL (7.4-10.4); Platelet Count 184 thou/uL (130-400); RBC Distribution Width 13.1 % (11.5-14.5); Red Blood Cell (RBC) Count 4.67 mill/uL (4.20-5.40); White Blood Cell (WBC) Count 3.3 thou/uL (4.8-10.8)
[2020-05-04 11:19] LABS: ALT (SGPT) 20 U/L (8-55); AST (SGOT) 30 U/L (5-34); Albumin 3.6 g/dL (3.4-4.8); Alkaline Phosphatase 84 U/L (40-110); Anion Gap 13 mmol/L (10-20); BUN (Urea Nitrogen) 19 mg/dL (9.8-20.1); Bilirubin, Total 1.8 mg/dL (0.2-1.2); Calc. Creatinine Clearance 0 mL/min (70-130); Calcium 8.3 mg/dL (7.8-10.44); Carbon Dioxide 22 mmol/L (23-31); Chloride 108 mmol/L (98-107); Estimated GFR-MDRD 50; Globulin 3.4 g/dL (2.4-3.5); Glucose 111 mg/dL (83-110); Lipase 15 U/L (8-78); Potassium 3.7 mmol/L (3.5-5.1); Sodium 139 mmol/L (136-145)
[2020-05-04 11:42] LABS: Bacteria/HPF 4+ HPF (None Seen); Bilirubin 1+ (Negative); Blood, Urine Trace (Negative); Clarity Extra Turbid (Clear); Glucose, Urine (Dipstick) Normal (Negative); Ketone, Urine Negative (Negative); Leukocyte 500 Leu/uL (Negative); Nitrite Negative (Negative); Protein, Urine (Dipstick) 70 mg/dL (Neg-Trace); Specific Gravity, Urine 1.022 (1.002-1.036); Squamous Epithelial Greater than 50 HPF (0-3); WBC/HPF 21-50 HPF (0-3); pH, Urine 5.5 (5.0-9.0)
[2020-05-04] MEDS ORDERED: Ciprofloxacin 500 MG TAB ONE (12:35)
== END 2020-05-04 12:55 | disposition home or self-care (01) ==
LOC: ERS 10:01
DX: K52.9 Noninfective gastroenteritis and colitis, unspecified (principal); N30.00 Acute cystitis without hematuria; K29.70 Gastritis, unspecified, without bleeding; E78.5 Hyperlipidemia, unspecified; I10 Essential (primary) hypertension; M19.90 Unspecified osteoarthritis, unspecified site; E78.00 Pure hypercholesterolemia, unspecified; Z79.899 Other long term (current) drug therapy
CPT/HCPCS: 80053; 81003; 81015; 83690; 84484; 85025; 93005; 96374; J2405

== ENCOUNTER 2020-05-12 09:05 | Inpatient (IN) | payer MEDICARE ==
--- NOTE | 2020-05-12 09:40 | RAD ---
XR Chest 1 View Portable HISTORY: Weakness. Recent UTI COMPARISON: 02/14/2020 FINDINGS: The heart size is enlarged. The lungs are well expanded without focal areas of consolidatio n, pneumothorax or pleural effusions. IMPRESSION: No radiographic evidence of acute cardiopulmonary process.
[2020-05-12 09:56] LABS: #Basophils 0.1 thou/uL (0.0-0.2); #Eosinphils 0.1 thou/uL (0.0-0.7); #Lymphocytes 1.4 thou/uL (1.20-3.40); #Monocytes 0.7 thou/uL (0.11-0.59); #Neutrophils 3.2 thou/uL (1.40-6.50); %Eosinophils 2.4 % (0.0-10.0); %Lymphocytes 24.6 % (21.0-51.0); %Monocytes 13.4 % (0.0-10.0); %Neutrophils 58.6 % (42.0-75.0); Mean Corpuscular Hemoglobin 30.3 pg (27.0-31.0); Mean Corpuscular Volume 89.2 fL (78.0-98.0); Platelet Count 240 thou/uL (130-400); RBC Distribution Width 12.6 % (11.5-14.5); Red Blood Cell (RBC) Count 4.94 mill/uL (4.20-5.40); White Blood Cell (WBC) Count 5.5 thou/uL (4.8-10.8)
[2020-05-12 10:16] LABS: ALT (SGPT) 11 U/L (8-55); AST (SGOT) 16 U/L (5-34); Albumin 3.2 g/dL (3.4-4.8); Alkaline Phosphatase 68 U/L (40-110); Anion Gap 17 mmol/L (10-20); BUN (Urea Nitrogen) 33 mg/dL (9.8-20.1); Bilirubin, Total 1.7 mg/dL (0.2-1.2); Calc. Creatinine Clearance 0 mL/min (70-130); Calcium 8.2 mg/dL (7.8-10.44); Carbon Dioxide 18 mmol/L (23-31); Chloride 108 mmol/L (98-107); Estimated GFR-MDRD 49; Globulin 2.8 g/dL (2.4-3.5); Glucose 104 mg/dL (83-110); Potassium 3.7 mmol/L (3.5-5.1); Sodium 139 mmol/L (136-145)
[2020-05-12 10:38] LABS: CKMB 1.5 ng/mL (0-6.6)
[2020-05-12 10:58] LABS: PTT 27.3 sec (22.9-36.1); Prothrombin Time 13.3 sec (12.0-14.7)
--- NOTE | 2020-05-12 11:21 | CT ---
CT BRAIN WITHOUT CONTRAST: HISTORY:Weakness COMPARISON:02/14/2020 FINDINGS: There are foci of decreased attenuation in the periventricular white matter, consistent with chronic small vessel ischemic disease. There is an old lacunar infarction in the right thalamus. Multiple areas of previous infarctions are again seen in the right cerebellar hemisphere. No evidence of acute infarct, hemorrhage, midline shift or abnormal extra-axial fluid collections is seen. The ventricular size is appropriate and the basilar cisterns are patent. The bony calvarium is intact. The visualized paranasal sinuses are well aerated. IMPRESSION: No CT evidence of acute intracranial process.
[2020-05-12 11:23] LABS: Bilirubin Negative (Negative); Blood, Urine Negative (Negative); Clarity Turbid (Clear); Glucose, Urine (Dipstick) Normal (Negative); Ketone, Urine Negative (Negative); Leukocyte 500 Leu/uL (Negative); Nitrite Negative (Negative); Protein, Urine (Dipstick) 30 mg/dL (Neg-Trace); Specific Gravity, Urine 1.023 (1.002-1.036)
[2020-05-12 11:40] LABS: Bacteria/HPF 1+ HPF (None Seen)
[2020-05-12] MEDS ORDERED: Meclizine HCl 25 MG TAB ONE (12:57)
[2020-05-12] MEDS ORDERED: Enoxaparin Sodium 100 MG/ML SYRINGE ONE (12:57)
[2020-05-12] MEDS ORDERED: Aspirin 325 MG TAB ONE (12:57)
[2020-05-12] MEDS ORDERED: Acetaminophen 325 MG TAB PO PRN (13:29)
[2020-05-12] MEDS ORDERED: Ondansetron ODT 4 MG TAB PO PRN (13:29)
[2020-05-12] MEDS ORDERED: Ondansetron PF 4 MG/2 ML Vial IVP PRN (13:29)
[2020-05-12] MEDS ORDERED: Labetalol HCl 100 MG/20 ML VIAL SLOW IVP PRN (13:32)
--- NOTE | 2020-05-12 13:40 | PDOC.HHP ---
Hospitalist HPI - History of Present Illness Generalized weakness, dizziness ED Course: 79-year-old female with a past medical history of CVA, hyperlipidemia, hypertension, diverticulosis, CKD stage III, chronic diastolic heart failure, GERD who presents to the emergency room for generalized weakness, and dizziness. Patient was recently seen in the emergency room and treated for a urinary tract infection on 05/06/2020. Patient completed a course of Cipro outpatient. Patient currently denies any symptoms. Reports that since that time she has had worsening generalized weakness and dizziness. Feels as though she is off balance and the room is spinning around her. She denies any numbness, weakness, paresthesias. In emergency room initial vital signs 106/61, 90, 18, 97% on room EKG showed atrial fibrillation with controlled ventricular rate. Initial troponin 0 0.031. BNP 311. BUNs/CR 33/1.07. H/H 15.0/44.1. WBC 5.5. CT brain with no acute findings. Chest x-ray no acute pathology. Patient received 25 mg meclizine, 325 mg of aspirin, and therapeutic dose Lovenox. Hospitalist ROS - Review of Systems Constitutional: reports: weakness, malaise Eyes: denies: pain, vision change, conjunctivae inflammation, eyelid inflammation, redness, other ENT: denies: ear pain, ear discharge, nose pain, nose discharge, nose congestion, mouth pain, mouth swelling, throat pain, throat swelling, other Respiratory: denies: cough, dry, shortness of breath, hemoptysis, SOB with excertion, pleuritic pain, sputum, wheezing, other Cardiovascular: reports: palpitations. denies: chest pain, orthopnea, paroxysmal noc. dyspnea, edema, light headedness, other Gastrointestinal: denies: nausea, vomiting, abdominal pain, diarrhea, constipation, melena, hematochezia, other Genitourinary: denies: dysuria, frequency, incontinence, hematuria, retention, other Musculoskeletal: denies: neck pain, shoulder pain, arm pain, back pain, hand pain, leg pain, foot pain, other Skin: denies: rash, lesions, joce, bruising, other Neurological: denies: weakness, numbness, incoordination, change in speech, confusion, seizures, other - Medication Medications: New medications include Bystolic Clonidine Affinity Atorvastatin Aspirin Allergy to lisinopril Hospitalist History - Past Medical History Other Medical History: Past medical history of Hyperlipidemia Hypertension Diverticulosis Shingles CVA in 2020 Chronic kidney disease Chronic diastolic heart failure GERD - Past Surgical History Other Surgical History: Past surgical history includes Hysterectomy Bladder suspension Appendectomy Cholecystectomy Tonsillectomy - Family History Other Family History: Patient denies family history of cardiac disease, cancer. - Social History Smoking Status: Never smoker Alcohol: reports: None Drugs: reports: none Living Situation: With Family (Patient lives with her 2 sons at home.) Activity level: independent ambulation - Exam General Appearance: NAD, awake alert Eye: PERRL, anicteric sclera ENT: normocephalic atraumatic, no oropharyngeal lesions, moist mucosa Neck: supple, symmetric, no JVD, no thyromegaly, no lymphadenopathy, no carotid bruit Heart: no murmur, normal peripheral pulses, irregular Respiratory: CTAB, no wheezes, no rales, no ronchi, normal chest expansion, no tachypnea, normal percussion Gastrointestinal: soft, non-tender, non-distended, normal bowel sounds, no palpable masses, no hepatomegaly, no splenomegaly, no bruit Extremities: no cyanosis, no clubbing, no edema Skin: normal turgor, no lesions, no rashes Neurological: cranial nerve grossly intact, normal sensation to touch, no weakness, no focal deficits, no new deficit Musculoskeletal: normal tone, normal strength, no muscle wasting Psychiatric: normal affect, normal behavior, A&O x 3 Hospitalist Results - Labs Result Diagrams: 05/12/20 09:46 05/12/20 09:46 Lab results: WBC 5.5 thou/uL (4.8-10.8) 05/12/20 09:46 Hgb 15.0 g/dL (12.0-16.0) 05/12/20 09:46 Hct 44.1 % (36.0-47.0) 05/12/20 09:46 MCV 89.2 fL (78.0-98.0) 05/12/20 09:46 Plt Count 240 thou/uL (130-400) 05/12/20 09:46 Neutrophils % 58.6 % (42.0-75.0) 05/12/20 09:46 Sodium 139 mmol/L (136-145) 05/12/20 09:46 Potassium 3.7 mmol/L (3.5-5.1) 05/12/20 09:46 Chloride 108 mmol/L (98-107) H 05/12/20 09:46 Carbon Dioxide 18 mmol/L (23-31) L 05/12/20 09:46 BUN 33 mg/dL (9.8-20.1) H 05/12/20 09:46 Creatinine 1.07 mg/dL (0.6-1.1) 05/12/20 09:46 Glucose 104 mg/dL (83-110) 05/12/20 09:46 Calcium 8.2 mg/dL (7.8-10.44) 05/12/20 09:46 Total Bilirubin 1.7 mg/dL (0.2-1.2) H 05/12/20 09:46 AST 16 U/L (5-34) 05/12/20 09:46 ALT 11 U/L (8-55) 05/12/20 09:46 Alkaline Phosphatase 68 U/L (40-110) 05/12/20 09:46 CK-MB (CK-2) 1.5 ng/mL (0-6.6) 05/12/20 09:46 Troponin I 0.031 ng/mL (< 0.028) H 05/12/20 09:46 B-Natriuretic Peptide 311.0 pg/mL (0-100) H 05/12/20 09:46 Serum Total Protein 6.0 g/dL (6.0-8.3) 05/12/20 09:46 Albumin 3.2 g/dL (3.4-4.8) L 05/12/20 09:46 Urine Ketones Negative mg/dL (Negative) 05/12/20 10:55 Urine Blood Negative (Negative) 05/12/20 10:55 Urine Nitrite Negative (Negative) 05/12/20 10:55 Ur Leukocyte Esterase 500 Holli/uL (Negative) A 05/12/20 10:55 Urine RBC 4-6 HPF (0-3) A 05/12/20 10:55 Urine WBC 11-20 HPF (0-3) A 05/12/20 10:55 Ur Squamous Epith Cells 11-20 HPF (0-3) A 05/12/20 10:55 Urine Bacteria 1+ HPF (None Seen) A 05/12/20 10:55 Hospitalist H&P A/P - Plan Plan: Dizziness 79-year-old female presents with 4 days of worsening dizziness, and generalized weakness. Patient recently treated for UTI and completed a course of Cipro. Patient currently denies any urinary symptoms. CT brain showed no acute pathology. Patient noted to have new onset A. fib. Patient does have history significant for recent stroke. Will obtain MRI to rule out posterior stroke. Recent echocardiogram did not show any aortic stenosis. Neurologically intact on exam. Patient did receive meclizine in emergency room. Plan MRI brain ASA, statin Full anticoagulation secondary to A. fib Neuro checks q4 PRN meclizine, Zofran Generalized weakness Patient has generalized weakness and dizziness. Complains of malaise. Recently treated for UTI and completed a 5-day course of Cipro. UA contaminated with multiple squamous cells. Patient currently denies any urinary symptoms. WBC 5.5. Afebrile. ANO x4. Suspect generalized weakness secondary to new onset atrial fibrillation. Low suspicion for any infectious process at this time, but will continue to monitor. Plan Covid screening Trend WBC, fever curve New onset atrial fibrillation Patient with new onset atrial fibrillation with controlled ventricular rate. Patient denies any prior history of atrial fibrillation. Does report that she was on Coumadin years ago for unknown reason. Patient started on 1 vijay per cake of Lovenox in emergency room. [id number] score 6. Patient's ventricular rate in the 100s. Will start p.o. metoprolol. Will consult cardiology, recommendations appreciated. Plan Telemetry monitoring Full anticoagulation with Lovenox Metoprolol 12.5 mg p.o. twice daily TSH, magnesium Cardiology consult Elevated troponin Patient with elevated troponin to 0.031. Patient denies any chest pain, shortness of breath. Likely secondary to atrial fibrillation. EKG with no obvious ST changes although in A. fib. Will trend troponins and continue to monitor. Plan Telemetry monitoring Trend troponins Hypertension History of hypertension. Will hold in setting of TIA rule out. Hyperlipidemia History of hyperlipidemia on atorvastatin 40 mg. Will continue. DVT prophylaxisfull anticoagulation with Lovenox DNRpatient competent and requested to be listed as a DNR. She has discussed thi s with her family and this is not a new decision for her. Case discussed with attending physician, Dr. Carranza.
[2020-05-12] MEDS ORDERED: Meclizine HCl 12.5 MG TAB PO PRN (13:56)
[2020-05-12 14:26] LABS: CKMB 1.9 ng/mL (0-6.6)
[2020-05-12] MEDS: Enoxaparin Sodium 100 MG/ML SYRINGE SC SCH (21:31)
[2020-05-12] MEDS: Metoprolol Tartrate 25 MG TAB PO SCH (21:32)
[2020-05-12] MEDS: Atorvastatin Calcium 40 MG TAB PO SCH (21:32)
--- NOTE | 2020-05-12 23:19 | CON ---
DATE OF CONSULTATION: 05/12/2020 INDICATION FOR CONSULTATION: An 79-year-old female, with new onset atrial fibrillation. HISTORY OF PRESENT ILLNESS: This very unfortunate 79-year-old female, who was seen by Dr. Lyman back in February of 2020, at which time, she has suffered a CVA. She has been complaining of some right-sided weakness, but now says she is weak all over. She says she is unable to even get out of the bed and go to the bathroom. She said this started happening after she was in the hospital, became worse in the last several days. She was in the hospital on May 06 with a urinary tract infection. She says her weakness has become significantly worse since being on the antibiotics. She presented again to the emergency room complaining of overall generalized weakness and some shortness of breath and was found to be in atrial fibrillation. At this time, she continues to be in atrial fibrillation. There is no previous history that I can determine from any atrial fibrillation in the past. She denied any chest pain. She does have some shortness of breath, but she says she hurts all over and has had problems with significant arthritis, but mainly she complains of the weakness, which has become worse. She also did admit that she does have a history of occasional palpitations. PAST MEDICAL HISTORY: Significant for hypertension, CVA, gastroesophageal reflux disease, and diverticulosis. She has had an appendectomy, tonsillectomy, bladder suspension, hysterectomy, and cholecystectomy. SOCIAL HISTORY: There is no history of tobacco abuse or alcohol use. FAMILY HISTORY: Positive for coronary artery disease. MEDICATIONS: Prior to admission included; 1. Bystolic. 2. Norvasc. Her other admission medications included atorvastatin 40 mg a day and also Bystolic 20 mg once a day. ALLERGIES: SHE IS ALLERGIC TO LISINOPRIL. REVIEW OF SYSTEMS: Mainly, she complained of the generalized weakness, fatigue, and pain all over. PHYSICAL EXAMINATION: GENERAL: Reveals an elderly female, who is in no acute distress. VITAL SIGNS: Her vital signs show that she is afebrile, heart rate is in the 80s to 90s with atrial fibrillation, respiratory rate is 18, O2 saturation 95%, and blood pressure is 125/59. HEENT EXAMINATION: Reveals the head to be normocephalic and atraumatic. NECK: Carotid pulses are present. There are no significant bruits noted. There is no JVD noted. CHEST: Clear to auscultation. No rales, rhonchi, or wheezing are noted. CARDIOVASCULAR: Reveals an irregularly irregular rhythm. There are no gross murmurs noted. ABDOMEN: Shows obesity with no tenderness. No palpable masses. Bowel sounds are present. EXTREMITIES: Show no clubbing, cyanosis, or edema. Femoral pulses are present. Popliteal pulses are present. Her pedal pulses are somewhat decreased and hard to palpate. SKIN: Warm and dry. NEUROLOGICAL: She does not get out of the bed for further evaluation, but otherwise appears to be grossly normal. Her mentation is absolutely normal. LABORATORY DATA: WBC is 5.5, hemoglobin is 15, and platelet count was 240,000. Sodium is 139 with potassium of 3.7. Her BUN is 33 with a creatinine of 1.07 and blood sugar is 104. Her cardiac enzymes show a troponin I on admission of 0.031. This is increased up to 0.045, which is still all indeterminate, most likely associated with her atrial fibrillation. The bilirubin is slightly elevated. Total bilirubin is elevated at 1.7. INR is 1.0. Urinalysis shows 1+ bacteria. IMPRESSION: 1. New onset atrial fibrillation. We will need to control the heart rate. She is on a beta grover already. The heart rate is under reasonable control. We will add oral anticoagulation. At this time, she has been placed on Lovenox at a therapeutic dose as well as 81 mg a day of aspirin. 2. History of hypertension. This is under good control at this time. 3. History of chronic pain syndrome, will be dealt with by the primary care service. Please note also that she did have an echocardiogram performed back in February of this year, which showed an ejection fraction of 55% to 60% with only mildly dilated left atrium and some evidence of diastolic dysfunction with mild mitral and tricuspid valve regurgitation. I am uncertain of the onset of the atrial fibrillation, but her last admission in February, there was no indication she had atrial fibrillation. I do not know whether or not she had any atrial fibrillation when she was seen with urinary tract infection, but this is most likely is due to stress associated with the urinary tract infection and the antibiotics. At this time, we will continue with her medications with the beta blockers and also with the Lovenox. It is possible she could undergo an early transesophageal echocardiogram and then possible cardioversion of her atrial fibrillation if we can determine exactly when this started and if there are any EKGs that were performed when she was seen in the emergency room back on the 06 of May. 4. She has had a cerebrovascular accident in the past. This appears to be stable. 5. History of morbid obesity. We will be more than happy to continue to follow the patient with you. Job ID: [id number]
[2020-05-13 04:15] LABS: #Basophils 0.1 thou/uL (0.0-0.2); #Eosinphils 0.2 thou/uL (0.0-0.7); #Lymphocytes 1.9 thou/uL (1.20-3.40); #Monocytes 0.8 thou/uL (0.11-0.59); #Neutrophils 2.8 thou/uL (1.40-6.50); %Basophils 1.7 % (0.0-1.0); %Eosinophils 4.1 % (0.0-10.0); %Lymphocytes 32.2 % (21.0-51.0); %Monocytes 13.9 % (0.0-10.0); %Neutrophils 48.1 % (42.0-75.0); Hemoglobin 14.5 g/dL (12.0-16.0); Mean Corpuscular HGB CONC 33.8 g/dL (32.0-36.0); Mean Corpuscular Hemoglobin 30.8 pg (27.0-31.0); Mean Corpuscular Volume 91.1 fL (78.0-98.0); Mean Platelet Volume 10.4 fL (7.4-10.4); Platelet Count 237 thou/uL (130-400); RBC Distribution Width 12.8 % (11.5-14.5); Red Blood Cell (RBC) Count 4.73 mill/uL (4.20-5.40); White Blood Cell (WBC) Count 5.9 thou/uL (4.8-10.8)
[2020-05-13 04:44] LABS: BUN (Urea Nitrogen) 40 mg/dL (9.8-20.1); Calc. Creatinine Clearance 58 mL/min (70-130); Calcium 8.6 mg/dL (7.8-10.44); Carbon Dioxide 15 mmol/L (23-31); Cardiac Risk 5.1 (Less than 4.5); Chloride 109 mmol/L (98-107); Cholesterol 133 mg/dl (< 200 Desired); Estimated GFR-MDRD 42; Glucose 82 mg/dL (83-110); HDL Cholesterol 26 mg/dL (>60 Neg Risk); LDL Cholesterol, Calculated 81 mg/dL; Potassium 3.5 mmol/L (3.5-5.1); Sodium 139 mmol/L (136-145); Triglycerides 129 mg/dL (Less than 150)
[2020-05-13 05:28] LABS: Anion Gap 19 mmol/L (10-20)
[2020-05-13] MEDS: Enoxaparin Sodium 100 MG/ML SYRINGE SC SCH (08:21)
[2020-05-13] MEDS: Aspirin 81 mg Enteric Coated Tablet PO SCH (08:21)
[2020-05-13] MEDS: Metoprolol Tartrate 25 MG TAB PO SCH ×2 (08:21→22:57)
--- NOTE | 2020-05-13 08:51 | PDOC.HOSPP ---
- Subjective Encounter Date: 05/13/20 Encounter Time: 10:40 Subjective: Patient feeling generalized weakness. Maybe a bit of shortness of breath. No other complaints. Had refused cardioversion of her Afib this AM to Dr. Lyman, but on further discussion she is now agreeable. - Objective Vital Signs & Weight: Vital Signs (12 hours) Temp Pulse Resp BP Pulse Ox 05/13/20 07:54 97.4 F L 75 16 121/72 94 L 05/13/20 03:17 94 L 05/13/20 03:10 97.9 F 77 20 135/58 L 994 H 05/12/20 23:41 98.6 F 79 18 116/65 94 L Weight Weight 221 lb I&O: 05/12/20 05/13/20 05/14/20 06:59 06:59 06:59 Intake Total 580 Balance 580 Result Diagrams: 05/13/20 13:48 05/13/20 03:36 Hospitalist ROS - Review of Systems Constitutional: denies: fever, chills Respiratory: denies: cough Cardiovascular: denies: chest pain, palpitations Gastrointestinal: denies: nausea, vomiting, abdominal pain - Medication Medications: Active Medications Generic Name Dose Route Start Last Admin Trade Name Freq PRN Reason Stop Dose Admin Aspirin 81 mg 05/13/20 09:00 05/13/20 08:21 Aspirin 81 Mg Enteric Coated Tablet PO 81 mg DAILY AMANDA Administration Atorvastatin Calcium 40 mg 05/12/20 21:00 05/12/20 21:32 Atorvastatin Calcium 40 Mg Tab PO 40 mg HS AMANDA Administration Enoxaparin Sodium 100 mg 05/12/20 21:00 05/13/20 08:21 Enoxaparin Sodium 100 Mg/Ml Syringe SC 100 mg 0900,2100 AMANDA Administration Metoprolol Tartrate 12.5 mg 05/12/20 21:00 05/13/20 08:21 Metoprolol Tartrate 25 Mg Tab PO 12.5 mg BID AMANDA Administration Ondansetron HCl 4 mg 05/12/20 13:29 05/13/20 08:21 Ondansetron Odt 4 Mg Tab PO 4 mg Q6H PRN Administration Nausea/Vomiting - Exam General Appearance: NAD, awake alert ENT: moist mucosa Heart: no murmur, no gallops, no rubs, irregular Respiratory: CTAB, no wheezes, no rales, no ronchi Gastrointestinal: soft, non-tender, non-distended, normal bowel sounds Psychiatric: normal affect, normal behavior, A&O x 3 Hosp A/P - Plan Dizziness 79-year-old female presents with 4 days of worsening dizziness, and generalized weakness. Patient recently treated for UTI and completed a course of Cipro. Patient currently denies any urinary symptoms. CT brain showed no acute pathology. Patient noted to have new onset A. fib. Patient does have history significant for recent stroke. Will obtain MRI to rule out posterior stroke. Recent echocardiogram did not show any aortic stenosis. Neurologically intact on exam. Patient did receive meclizine in emergency room. Plan MRI brain ASA, statin Full anticoagulation secondary to A. fib Neuro checks q4 PRN meclizine, Zofran Generalized weakness Patient has generalized weakness and dizziness. Complains of malaise. Recently treated for UTI and completed a 5-day course of Cipro. UA contaminated with m ultiple squamous cells. Patient currently denies any urinary symptoms. WBC 5.5. Afebrile. ANO x4. Suspect generalized weakness secondary to new onset atrial fibrillation. Low suspicion for any infectious process at this time, but will continue to monitor. Plan Covid screening Trend WBC, fever curve New onset atrial fibrillation Patient with new onset atrial fibrillation with controlled ventricular rate. Patient denies any prior history of atrial fibrillation. Does report that she was on Coumadin years ago for unknown reason. Patient started on 1 vijay per cake of Lovenox in emergency room. [id number] score 6. Patient's ventricular rate in the 100s. Started p.o. metoprolol. Dr. Lyman considering cardioversion. Plan Telemetry monitoring Full anticoagulation with Lovenox Metoprolol 12.5 mg p.o. twice daily TSH, magnesium Cardiology consult Elevated troponin Patient with minimally elevated troponin to 0.031. Patient denies any chest pain, shortness of breath. Likely secondary to atrial fibrillation. EKG with no obvious ST changes although in A. fib. Will trend troponins and continue to monitor. Plan Telemetry monitoring Trend troponins Hypertension History of hypertension. Will hold in setting of TIA rule out. Hyperlipidemia History of hyperlipidemia on atorvastatin 40 mg. Will continue. DVT prophylaxisfull anticoagulation with Lovenox DNRpatient competent and requested to be listed as a DNR. She has discussed this with her family and this is not a new decision for her.
[2020-05-13] MEDS: Dextrose 5 %-0.45 % NaCl 1,000 ML IV SCH ×2 (09:25→23:33)
[2020-05-13] MEDS ORDERED: Magnevist 469MG/ML 20 ML VIAL ONE (10:42)
--- NOTE | 2020-05-13 11:59 | MRI ---
Brain MRI with and without contrast: 05/13/2020 COMPARISON: None HISTORY: Dizziness TECHNIQUE: Multiplanar multisequence MR imaging of the brain is provided with and without contrast FINDINGS: The diffusion weighted imaging demonstrates no evidence for acute infarction. The axial gradient echo imaging demonstrates no evidence for acute hemorrhage. There is extensive sev ere confluent periventricular, deep, and subcortical white matter T2 and FLAIR hyperintensity, evidence of prominent small vessel disease. Multiple foci of prior infarction are noted within the ri ght cerebellar hemisphere. Patchy areas of increased T2 signal is noted within the jluis. There are a few opacified mastoid air cells bilaterally, right greater than left. Arterial flow voids at the axial level of the skull base appear grossly unremarkable on the T2-weight ed imaging. The whole brain postcontrast imaging demonstrates no abnormal enhancement within the brain parenchyma . IMPRESSION: Severe small vessel disease and evidence of prior infarctions as detailed above. No acute findings are seen.
[2020-05-13 12:50] LABS: SARS-CoV-2 MS2 Positive; SARS-CoV-2 N Gene Positive; SARS-CoV-2 S Gene Positive; SARS-CoV-2 by NAA DETECTED (NotDetected); SARS-CoV-2 orf1ab Positive
[2020-05-13 14:02] LABS: Hemoglobin 14.6 g/dL (12.0-16.0); Platelet Count 283 thou/uL (130-400)
[2020-05-13 14:53] VITALS: BMI 41.7
[2020-05-13] MEDS: Atorvastatin Calcium 40 MG TAB PO SCH (22:58)
[2020-05-13] MEDS: Apixaban 5 MG TAB PO SCH (22:58)
[2020-05-14 07:26] LABS: #Basophils 0.1 thou/uL (0.0-0.2); #Eosinphils 0.3 thou/uL (0.0-0.7); #Lymphocytes 1.2 thou/uL (1.20-3.40); #Monocytes 0.7 thou/uL (0.11-0.59); #Neutrophils 3.9 thou/uL (1.40-6.50); %Basophils 1.3 % (0.0-1.0); %Lymphocytes 19.8 % (21.0-51.0); %Monocytes 11.7 % (0.0-10.0); %Neutrophils 62.2 % (42.0-75.0); Hemoglobin 13.2 g/dL (12.0-16.0); Mean Corpuscular HGB CONC 33.3 g/dL (32.0-36.0); Mean Corpuscular Hemoglobin 30.5 pg (27.0-31.0); Mean Corpuscular Volume 91.6 fL (78.0-98.0); Mean Platelet Volume 10.2 fL (7.4-10.4); Platelet Count 260 thou/uL (130-400); RBC Distribution Width 12.8 % (11.5-14.5); Red Blood Cell (RBC) Count 4.33 mill/uL (4.20-5.40); White Blood Cell (WBC) Count 6.3 thou/uL (4.8-10.8)
[2020-05-14 07:43] LABS: Anion Gap 14 mmol/L (10-20); BUN (Urea Nitrogen) 50 mg/dL (9.8-20.1); Calc. Creatinine Clearance 47 mL/min (70-130); Calcium 8.7 mg/dL (7.8-10.44); Carbon Dioxide 23 mmol/L (23-31); Chloride 107 mmol/L (98-107); Estimated GFR-MDRD 33; Glucose 136 mg/dL (83-110); Potassium 3.3 mmol/L (3.5-5.1); Sodium 141 mmol/L (136-145)
[2020-05-14] MEDS: Aspirin 81 mg Enteric Coated Tablet PO SCH (08:22)
[2020-05-14] MEDS: Metoprolol Tartrate 25 MG TAB PO SCH (08:22)
[2020-05-14] MEDS: Apixaban 5 MG TAB PO SCH (08:22)
[2020-05-14] MEDS ORDERED: Metoprolol Tartrate 25 MG TAB PO SCH (08:52)
--- NOTE | 2020-05-14 08:55 | PDOC.HOSPP ---
- Subjective Encounter Date: 05/14/20 Encounter Time: 11:00 Subjective: Patient getting up to bathroom with nurse. Dizziness ok. No stroke on MRI. Patient thinks she may have gotten the Covid a couple weeks ago but feels better now. Minimal cough that is now gone and no SOB. Thinks her family can help her get around at home. - Objective Vital Signs & Weight: Vital Signs (12 hours) Temp Pulse Resp BP Pulse Ox 05/14/20 05:43 97 05/14/20 04:00 97.1 F L 92 20 141/65 H 97 Weight Admit Weight 221 lb Weight 221 lb I&O: 05/13/20 05/14/20 05/15/20 06:59 06:59 06:59 Intake Total 580 1730 Balance 580 1730 Result Diagrams: 05/14/20 07:01 05/14/20 09:01 Hospitalist ROS - Review of Systems Constitutional: denies: fever, chills Respiratory: denies: cough, shortness of breath Cardiovascular: denies: chest pain, palpitations Gastrointestinal: denies: nausea, vomiting, abdominal pain - Medication Medications: Active Medications Generic Name Dose Route Start Last Admin Trade Name Freq PRN Reason Stop Dose Admin Apixaban 5 mg 05/13/20 21:00 05/13/20 22:58 Apixaban 5 Mg Tab PO 5 mg BID AMANDA Administration Aspirin 81 mg 05/13/20 09:00 05/13/20 08:21 Aspirin 81 Mg Enteric Coated Tablet PO 81 mg DAILY AMANDA Administration Atorvastatin Calcium 40 mg 05/12/20 21:00 05/13/20 22:58 Atorvastatin Calcium 40 Mg Tab PO 40 mg HS AMANDA Administration Dextrose/Sodium Chloride 1,000 mls @ 75 mls/hr 05/13/20 09:00 05/13/20 23:33 D5 1/2 Ns IV Not Given .[id number] AMANDA Ondansetron HCl 4 mg 05/12/20 13:29 05/13/20 08:21 Ondansetron Odt 4 Mg Tab PO 4 mg Q6H PRN Administration Nausea/Vomiting - Exam General Appearance: NAD, awake alert ENT: moist mucosa Heart: no murmur, no gallops, no rubs, irregular Respiratory: CTAB, no wheezes, no rales, no ronchi Gastrointestinal: soft, non-tender, non-distended, normal bowel sounds Psychiatric: normal affect, normal behavior, A&O x 3 Hosp A/P - Plan Dizziness 79-year-old female presents with 4 days of worsening dizziness, and generalized weakness. Patient recently treated for UTI and completed a course of Cipro. Patient currently denies any urinary symptoms. CT brain showed no acute pathology. Patient noted to have new onset A. fib. Patient does have history significant for recent stroke. Will obtain MRI to rule out posterior stroke. Recent echocardiogram did not show any aortic stenosis. Neurologically intact on exam. Patient did receive meclizine in emergency room. Plan MRI brain ASA, statin Full anticoagulation secondary to A. fib Neuro checks q4 PRN meclizine, Zofran Generalized weakness Patient has generalized weakness and dizziness. Complains of malaise. Suspect generalized weakness secondary to new onset atrial fibrillation though Covid-19 may play a role. Low suspicion for any bacterial infectious process at this time, but will continue to monitor. Plan Covid screening- positive no fever, nml WBC COVID-19 Patient mostly asymptomatic now but looking back she thinks she was sick with URI about 2 weeks ago but that is better now. No hypoxia. No indication for steroids or other interventions at this point. New onset atrial fibrillation Patient with new onset atrial fibrillation with controlled ventricular rate. Patient denies any prior history of atrial fibrillation. Does report that she was on Coumadin years ago for unknown reason. Patient started on 1 vijay per cake of Lovenox in emergency room. [id number] score 6. Patient's ventricular rate in the 100s. Started p.o. metoprolol. Dr. Lyman considering cardioversion prior to COVID diagnosis. Plan Telemetry monitoring Full anticoagulation with Lovenox- transitioned to Eliquis Metoprolol up to 25 mg p.o. twice daily today, with good rate control in 70s- 80s. Cardiology consulted, Dr. Lyman following Elevated troponin Patient with minimally elevated troponin to 0.031. Patient denies any chest pain, shortness of breath. Likely secondary to atrial fibrillation. EKG with no obvious ST changes although in A. fib. Troponins trended. Plan Telemetry monitoring Trend troponins- stable Hypertension History of hypertension. Controlled on just the Metoprolol so d/c other meds Hyperlipidemia History of hyperlipidemia on atorvastatin 40 mg. Will continue. Patient much better today. Ambulated with PT. I discussed with Dr. Lyman and given her improvement with metoprolol rate control he is comfortable with her going home. She states she has family who can help her out at home. DVT prophylaxisfull anticoagulation with Lovenox DNRpatient competent and requested to be listed as a DNR. She has discussed thi s with her family and this is not a new decision for her.
[2020-05-14] MEDS: Dextrose 5 %-0.45 % NaCl 1,000 ML IV SCH (08:59)
[2020-05-14 12:04] VITALS: TEMP 97.5
[2020-05-14 12:36] VITALS: BP 112/69
--- NOTE | 2020-05-15 00:52 | DIS ---
DATE OF ADMISSION: 05/12/2020 DATE OF DISCHARGE: 05/14/2020 PRIMARY CARE PHYSICIAN: Rodriguez Rivera. REASON FOR ADMISSION: Generalized weakness with dizziness. DIAGNOSES AT DISCHARGE: 1. New-onset atrial fibrillation, now rate controlled. 2. COVID-19 infection, possibly past infectious window without current symptoms. 3. Hypertension. 4. Hyperlipidemia. PROCEDURES: 1. CT scan of the brain without contrast showing no evidence of acute intracranial process. 2. MRI of the brain showing severe small-vessel disease and evidence for prior infarctions, but no acute infarction seen. CONSULTATIONS: Cardiology, Dr. Jennings for Dr. Lyman. SUMMARY OF HOSPITAL COURSE: This is an 79-year-old female with a past history of previous stroke, hyperlipidemia, hypertension, and some previous chronic diastolic congestive heart failure. She presented to the emergency room with complaint of generalized weakness and dizziness. She has recently been treated with Cipro for UTI as an outpatient. She felt like she was off balance and the room was spinning around her. The patient presented to the emergency room. In the ER, she was found to be in atrial fibrillation with intermittently fast rate and a minimally indeterminate troponin. She had a CT of brain that was negative. The patient was put on therapeutic Lovenox, given aspirin, given meclizine, and admitted to the hospital. She did have an MRI to make sure she had no recurrent stroke and was negative for recurrent stroke. Cardiology was consulted about her atrial fibrillation. She has no history of atrial fibrillation. It was thought this must have developed within the last couple of weeks, possibly last couple of days, so there was discussion with the patient about getting a SHYAM and then a cardioversion. The patient was initially resistant to this idea, but eventually agreed. However, her routine COVID test did come back positive so this was canceled. The patient was put on metoprolol and was titrated up until she had good rate control and this controlled her blood pressure as well so that her other blood pressure medicines could be discontinued. The patient was able to get up and ambulate with physical therapy. She was converted to [facility] by Dr. Lyman and was moving around with physical therapy well on the day of discharge. She stated that she had family members who helping her out at home and so she is being discharged home with Home Health PT and OT. DISCHARGE MANAGEMENT: Discharged home with Home Health. ACTIVITY: As tolerated. DIET: Healthy heart low-sodium diet. THERAPY: Occupational and physical therapy with home health. EQUIPMENT AND SUPPLIES: She needs to get a walker. FOLLOWUP: Follow up with Dr. Lyman in 2 to [address] Rivera as needed. DISCHARGE MEDICATIONS: 1. Aspirin 81 mg daily, 30 tablets dispensed. 2. Eliquis 5 mg twice a day, 60 tablets dispensed. 3. Metoprolol tartrate 25 mg twice a day, 60 tablets dispensed. 4. Atorvastatin 40 mg at night. The patient is to discontinue her amlodipine and Bystolic. TIME SPENT: Arranging the details of this discharge took 32 minutes. Job ID: [id number]
--- NOTE | 2020-05-16 16:29 | EKG ---
Test Reason : WEANESS Blood Pressure : / mmHG Vent. Rate : 105 BPM Atrial Rate : 141 BPM P-R Int : 000 ms QRS Dur : 102 ms QT Int : 368 ms P-R-T Axes : 000 -11 186 degrees QTc Int : 486 ms Atrial fibrillation with rapid ventricular response Minimal voltage criteria for LVH, may be normal variant Nonspecific ST and T wave abnormality , probably digitalis effect Abnormal ECG Confirmed by LIZETTE KAMINSKI DO ([id number]), material expeditor ANGELINA KELLEY ([id number]) on 05/16/2020 4:28:46 PM Referred By: GORDY Confirmed By:LIZETTE KAMINSKI DO
== END 2020-05-14 16:10 | disposition home health service (06) | DRG 308 ==
LOC: ERS 09:05 → ERHOLD 13:28 → OBSVTOIN 13:57 → ERS 13:57 → 2NO 13:57
PROVIDERS: ADMIT Internal Medicine; ATTEND Emergency Medicine
PROC: 8E0ZXY6 Isolation (ICD-10-PCS; principal; 2020-05-12)
DX: I48.91 Unspecified atrial fibrillation (principal); U07.1 COVID-19; I13.0 Hypertensive heart and chronic kidney disease with heart failure and stage 1 through stage 4 chronic kidney disease, or unspecified chronic kidney disease; I50.32 Chronic diastolic (congestive) heart failure; Z68.41 Body mass index [BMI] 40.0-44.9, adult; Z66 Do not resuscitate; E78.5 Hyperlipidemia, unspecified; N18.30 Chronic kidney disease, stage 3 unspecified; K21.9 Gastro-esophageal reflux disease without esophagitis; M19.90 Unspecified osteoarthritis, unspecified site; G89.4 Chronic pain syndrome; E66.01 Morbid (severe) obesity due to excess calories; Z53.29 Procedure and treatment not carried out because of patient's decision for other reasons; Z86.73 Personal history of transient ischemic attack (TIA), and cerebral infarction without residual deficits; Z90.49 Acquired absence of other specified parts of digestive tract; Z90.710 Acquired absence of both cervix and uterus
CPT/HCPCS: 36415; 70450; 70553; 71045; 80048; 80053; 80061; 81003; 81015; 82553; 83735; 83880; 84443; 84484; 85025; 85379; 85610; 85730; 87635; 93005; 96372; A9579; G0378; J1650; Q0162; U0003

== ENCOUNTER 2020-05-25 11:05 | Emergency (ER) | payer MEDICARE ==
--- NOTE | 2020-05-25 11:54 | RAD ---
Chest AP view INDICATION: History of shortness of breath and Covid positive status COMPARISON: May 12, 2020 FINDINGS: Lungs: The lungs are clear Cardiac silhouette: Stable cardiomegaly. Pulmonary vasculature: Normal Pleural spaces: No pleural effusion or pneumothorax is demonstrated. Upper abdomen: No abnormality seen. Osseous structures: No acute osseous abnormality. Additional findings: None. IMPRESSION: No acute cardiopulmonary abnormality.
[2020-05-25 12:05] LABS: #Basophils 0.1 thou/uL (0.0-0.2); #Eosinphils 0.3 thou/uL (0.0-0.7); #Lymphocytes 1.7 thou/uL (1.20-3.40); #Monocytes 1.1 thou/uL (0.11-0.59); #Neutrophils 5.8 thou/uL (1.40-6.50); %Basophils 0.6 % (0.0-1.0); %Eosinophils 3.8 % (0.0-10.0); %Lymphocytes 19.4 % (21.0-51.0); %Monocytes 11.8 % (0.0-10.0); %Neutrophils 64.4 % (42.0-75.0); Hemoglobin 14.1 g/dL (12.0-16.0); Mean Corpuscular HGB CONC 32.6 g/dL (32.0-36.0); Mean Corpuscular Hemoglobin 30.2 pg (27.0-31.0); Mean Corpuscular Volume 92.7 fL (78.0-98.0); Mean Platelet Volume 10.7 fL (7.4-10.4); Platelet Count 202 thou/uL (130-400); RBC Distribution Width 14.6 % (11.5-14.5); Red Blood Cell (RBC) Count 4.67 mill/uL (4.20-5.40)
[2020-05-25 12:23] LABS: ALT (SGPT) 25 U/L (8-55); AST (SGOT) 28 U/L (5-34); Albumin 3.4 g/dL (3.4-4.8); Alkaline Phosphatase 80 U/L (40-110); Anion Gap 14 mmol/L (10-20); BUN (Urea Nitrogen) 24 mg/dL (9.8-20.1); Bilirubin, Total 2.2 mg/dL (0.2-1.2); Calc. Creatinine Clearance 0 mL/min (70-130); Calcium 9.2 mg/dL (7.8-10.44); Carbon Dioxide 20 mmol/L (23-31); Chloride 114 mmol/L (98-107); Estimated GFR-MDRD 45; Globulin 3.6 g/dL (2.4-3.5); Glucose 107 mg/dL (83-110); Potassium 4.3 mmol/L (3.5-5.1); Sodium 144 mmol/L (136-145)
[2020-05-25 13:32] LABS: Bilirubin Moderate (Negative); Blood, Urine Negative (Negative); Glucose, Urine (Dipstick) 100 mg/dL (Negative); Ketone, Urine Trace mg/dL (Negative); Leukocyte Trace (Negative); Nitrite Positive (Negative); Protein, Urine (Dipstick) 30 mg/dL (Neg-Trace)
[2020-05-25 13:52] LABS: Clarity Clear (Clear)
[2020-05-25 13:53] LABS: Specific Gravity, Urine 1.026 (1.002-1.036)
[2020-05-25 14:13] LABS: RBC/HPF None Seen HPF (0-3); WBC/HPF 0-3 HPF (0-3)
[2020-05-25 14:14] LABS: Bacteria/HPF 1+ HPF (None Seen); Calcium Oxalate Crystals 1+ HPF (None Seen); Squamous Epithelial 21-50 HPF (0-3)
== END 2020-05-25 14:59 | disposition home or self-care (01) ==
LOC: ERS 11:05
DX: I48.91 Unspecified atrial fibrillation (principal); Z79.899 Other long term (current) drug therapy; E78.5 Hyperlipidemia, unspecified; E78.00 Pure hypercholesterolemia, unspecified; E66.9 Obesity, unspecified; I10 Essential (primary) hypertension; M19.90 Unspecified osteoarthritis, unspecified site
CPT/HCPCS: 71045; 80053; 81003; 81015; 83880; 84484; 85025; 93005

== ENCOUNTER 2020-10-01 10:41 | Emergency (ER) | payer MEDICARE ==
[2020-10-01] MEDS ORDERED: HYDROcodone/Acetaminophen 10/325 mg Tablet ONE (11:51)
== END 2020-10-01 12:33 | disposition home or self-care (01) ==
LOC: ERS 10:41
DX: S83.91XA Sprain of unspecified site of right knee, initial encounter (principal); E78.5 Hyperlipidemia, unspecified; E78.00 Pure hypercholesterolemia, unspecified; I10 Essential (primary) hypertension; M19.90 Unspecified osteoarthritis, unspecified site; E66.9 Obesity, unspecified; Z79.899 Other long term (current) drug therapy; W18.2XXA Fall in (into) shower or empty bathtub, initial encounter

== ENCOUNTER 2021-01-10 17:40 | Emergency (ER) | payer OTHER, MEDICARE | END 2021-01-10 19:06 | disposition home or self-care (01) | LOC: ERS 17:40 | DX: S09.90XA Unspecified injury of head, initial encounter (principal); E78.5 Hyperlipidemia, unspecified; I10 Essential (primary) hypertension; Z79.899 Other long term (current) drug therapy; W01.0XXA Fall on same level from slipping, tripping and stumbling without subsequent striking against object, initial encounter | CPT/HCPCS: 70450; 93005 ==

== ENCOUNTER 2021-01-25 15:01 | Observation (INO) | payer MEDICARE ==
[2021-01-25 23:06] VITALS: BMI 45.3
[2021-01-27 15:58] VITALS: BP 193/96; TEMP 97.4
== END 2021-01-27 17:25 | disposition home or self-care (01) ==
LOC: ERS 15:01 → INTOOBSV 19:29 → 2SE 19:29
PROVIDERS: ADMIT Internal Medicine; ATTEND Internal Medicine
DX: R20.0 Anesthesia of skin (principal); R53.1 Weakness; R20.2 Paresthesia of skin; I16.0 Hypertensive urgency; I10 Essential (primary) hypertension; E78.5 Hyperlipidemia, unspecified; M19.90 Unspecified osteoarthritis, unspecified site; K57.92 Diverticulitis of intestine, part unspecified, without perforation or abscess without bleeding; I51.7 Cardiomegaly; M48.02 Spinal stenosis, cervical region; M43.12 Spondylolisthesis, cervical region; E66.01 Morbid (severe) obesity due to excess calories; Z68.42 Body mass index [BMI] 45.0-49.9, adult; Z86.73 Personal history of transient ischemic attack (TIA), and cerebral infarction without residual deficits; Z86.718 Personal history of other venous thrombosis and embolism; Z79.01 Long term (current) use of anticoagulants; Z79.82 Long term (current) use of aspirin; Z79.899 Other long term (current) drug therapy; Z88.8 Allergy status to other drugs, medicaments and biological substances
CPT/HCPCS: 70450; 70551; 71045; 72141; 80048; 80053; 80061; 80306; 80307; 83690; 84484; 85025 ×2; 85610; 85730; 93005; 93306; 93880; 95712; 95819; 95957; 97116; 97139 ×6; 99285; G0378 ×4; 36415

== ENCOUNTER 2021-07-21 23:01 | Inpatient (IN) | payer MEDICARE, OTHER ==
[2021-07-21] MEDS ORDERED: Norepinephrine 8 MG/0.9% NS 0 ML ONE (23:23)
[2021-07-21] MEDS ORDERED: niCARdipine 25 MG/10 ML VIAL ONE (23:24)
[2021-07-21 23:36] LABS: Mean Corpuscular HGB CONC 33.6 g/dL (32.0-36.0); Mean Corpuscular Hemoglobin 30.8 pg (27.0-31.0); Mean Corpuscular Volume 91.6 fL (78.0-98.0); Mean Platelet Volume 8.7 fL (7.4-10.4); Platelet Count 202 thou/uL (130-400); Red Blood Cell (RBC) Count 4.23 mill/uL (4.20-5.40)
[2021-07-21 23:45] LABS: Prothrombin Time 13.6 sec (12.0-14.7)
[2021-07-21] MEDS ORDERED: HUMAN PROTHROMBIN COMPLX IV SCH (23:45)
[2021-07-21] MEDS ORDERED: HUM PROTHROMBIN CPLX IV SCH (23:45)
[2021-07-21] MEDS ORDERED: [UNRECOGNIZED DRUG - OTHER] IV SCH (23:45)
[2021-07-21 23:54] LABS: ALT (SGPT) 11 U/L (8-55); AST (SGOT) 20 U/L (5-34); Albumin 3.6 g/dL (3.4-4.8); Alkaline Phosphatase 85 U/L (40-110); Anion Gap 17 mmol/L (10-20); BUN (Urea Nitrogen) 22 mg/dL (9.8-20.1); Bilirubin, Total 2.1 mg/dL (0.2-1.2); Calc. Creatinine Clearance 0 mL/min (70-130); Calcium 9.3 mg/dL (7.8-10.44); Carbon Dioxide 21 mmol/L (23-31); Chloride 108 mmol/L (98-107); Globulin 3.7 g/dL (2.4-3.5); Glucose 118 mg/dL (83-110); Potassium 3.6 mmol/L (3.5-5.1); Protein, Total 7.3 g/dL (5.8-8.1); Sodium 142 mmol/L (136-145)
[2021-07-22 00:10] LABS: Band 20 % (5-11); Lymphocytes 5 % (21-51); MDiff Complete? YES; Monocytes 6 % (0-10); Neutrophil 69 % (42-75); Platelet Morphology Comment Appears Adequate; RBC Morphology Normal
[2021-07-22 00:28] LABS: SARS-CoV-2 NAA Rapid Test Not Detected (NotDetected)
[2021-07-22] MEDS ORDERED: HYDROcodone/Acetaminophen 5/325 mg Tablet ONE (00:46)
[2021-07-22 01:30] LABS: Bilirubin Negative (Negative); Blood, Urine Small (Negative); Glucose, Urine (Dipstick) Negative (Negative); Ketone, Urine Negative (Negative); Leukocyte Negative (Negative); Nitrite Negative (Negative); Protein, Urine (Dipstick) 30 mg/dL (Neg-Trace); Specific Gravity, Urine 1.025 (1.005-1.030); Urobilinogen 0.2 mg/dL (Less than 2); pH, Urine 5.5 (5.0-9.0)
[2021-07-22 01:43] LABS: Bacteria/HPF None Seen HPF (None Seen); Clarity Clear (Clear); Mucous/LPF Rare LPF (<2+); RBC/HPF 0-3 HPF (0-3); Squamous Epithelial 0-3 HPF (0-3); WBC/HPF 0-3 HPF (0-3)
[2021-07-22] MEDS ORDERED: niCARdipine 25 MG/10 ML VIAL ONE (01:43)
[2021-07-22] MEDS ORDERED: niCARdipine 25 MG in Sodium Chloride 0.9% 250 ML 250 ML IVPB SCH (02:00)
[2021-07-22] MEDS ORDERED: Sodium Chloride 0.9% 1,000 ML IV SCH (02:15)
[2021-07-22] MEDS ORDERED: Sodium Chloride 0.9% 500 ML IV SCH (03:00)
[2021-07-22 03:11] LABS: Lactic Acid 2.5 mmol/L (0.5-2.2)
[2021-07-22 03:14] LABS: Band 28 % (5-11); Hemoglobin 12.6 g/dL (12.0-16.0); Lymphocytes 3 % (21-51); MDiff Complete? YES; Mean Corpuscular HGB CONC 34.7 g/dL (32.0-36.0); Mean Corpuscular Hemoglobin 32.1 pg (27.0-31.0); Mean Corpuscular Volume 92.5 fL (78.0-98.0); Mean Platelet Volume 9.7 fL (7.4-10.4); Monocytes 5 % (0-10); Neutrophil 64 % (42-75); Platelet Count 198 thou/uL (130-400); Platelet Morphology Comment Appears Adequate; RBC Distribution Width 13.1 % (11.5-14.5); RBC Morphology Normal; Red Blood Cell (RBC) Count 3.92 mill/uL (4.20-5.40); White Blood Cell (WBC) Count 21.9 thou/uL (4.8-10.8)
[2021-07-22 03:30] LABS: Anion Gap 19 mmol/L (10-20); BUN (Urea Nitrogen) 22 mg/dL (9.8-20.1); Calc. Creatinine Clearance 73 mL/min (70-130); Calcium 8.7 mg/dL (7.8-10.44); Carbon Dioxide 17 mmol/L (23-31); Chloride 109 mmol/L (98-107); Glucose 142 mg/dL (83-110); Potassium 3.5 mmol/L (3.5-5.1); Sodium 141 mmol/L (136-145)
[2021-07-22] MEDS: Sodium Chloride 0.9% 1,000 ML IV SCH ×2 (03:30→22:12)
[2021-07-22] MEDS ORDERED: Vancomycin 1 GM in Premix Bag 1 BAG IVPB SCH (05:00)
[2021-07-22] MEDS ORDERED: Fentanyl 100 MCG/2 ML VIAL SLOW IVP SCH ×2 (05:00→06:45)
[2021-07-22] MEDS: Cefepime 1 GM in Sodium Chloride 0.9% 100 ML IVPB SCH ×2 (05:01→15:35)
[2021-07-22] MEDS ORDERED: Fentanyl 100 MCG/2 ML VIAL ONE (06:34)
[2021-07-22] MEDS ORDERED: niCARdipine 50 MG in Sodium Chloride 0.9% 250 ML 230 ML IVPB SCH (07:15)
[2021-07-22] MEDS ORDERED: Famotidine 20 MG TAB PO SCH (09:00)
[2021-07-22] MEDS: SODIUM CHLORIDE IVPB SCH ×3 (09:24→20:53)
[2021-07-22] MEDS: NICARDIPINE IVPB SCH ×3 (09:24→20:53)
[2021-07-22] MEDS: ADMIXTURE FEE IVPB SCH ×3 (09:24→20:53)
[2021-07-22] MEDS ORDERED: Vancomycin HCl 500 MG in Sodium Chloride 0.9% 100 ML IVPB SCH (09:45)
[2021-07-22] MEDS: Labetalol HCl 100 MG/20 ML VIAL SLOW IVP PRN (13:18)
[2021-07-22] MEDS: hydrALAZINE 20 MG/ML VIAL SLOW IVP PRN ×2 (15:00→15:39)
[2021-07-22] MEDS: Famotidine 20 MG TAB PO SCH (21:47)
[2021-07-23] MEDS: NICARDIPINE IVPB SCH ×3 (00:30→08:24)
[2021-07-23] MEDS: SODIUM CHLORIDE IVPB SCH ×3 (00:30→08:24)
[2021-07-23] MEDS: ADMIXTURE FEE IVPB SCH ×3 (00:30→08:24)
[2021-07-23] MEDS ORDERED: Fentanyl 100 MCG/2 ML VIAL SLOW IVP SCH (02:45)
[2021-07-23] MEDS: Vancomycin 1.5 GRAM/300 ML BAG 1.5 GM in Premix Bag 1 BAG IVPB SCH (04:20)
[2021-07-23] MEDS: Cefepime 1 GM in Sodium Chloride 0.9% 100 ML IVPB SCH ×2 (04:20→15:37)
[2021-07-23 04:21] LABS: Anion Gap 14 mmol/L (10-20); BUN (Urea Nitrogen) 33 mg/dL (9.8-20.1); Calc. Creatinine Clearance 68 mL/min (70-130); Calcium 8.3 mg/dL (7.8-10.44); Carbon Dioxide 18 mmol/L (23-31); Chloride 111 mmol/L (98-107); Glucose 128 mg/dL (83-110); Potassium 3.3 mmol/L (3.5-5.1); Sodium 140 mmol/L (136-145)
[2021-07-23 04:34] LABS: Hemoglobin 11.6 g/dL (12.0-16.0); Mean Corpuscular HGB CONC 31.9 g/dL (32.0-36.0); Mean Corpuscular Hemoglobin 29.6 pg (27.0-31.0); Mean Platelet Volume 9.9 fL (7.4-10.4); Platelet Count 177 thou/uL (130-400); RBC Distribution Width 13.2 % (11.5-14.5); White Blood Cell (WBC) Count 19.1 thou/uL (4.8-10.8)
[2021-07-23 05:03] LABS: Band 28 % (5-11); Lymphocytes 8 % (21-51); MDiff Complete? YES; Monocytes 4 % (0-10); Neutrophil 60 % (42-75)
[2021-07-23] MEDS: Famotidine 20 MG TAB PO SCH ×2 (08:30→21:36)
[2021-07-23] MEDS: HYDROcodone/Acetaminophen 5/325 mg Tablet PO PRN (12:46)
[2021-07-23] MEDS: Diltiazem HCl 125 MG, Admixture Fee 1 EACH in Sodium Chloride 0.9% 100 ML IVPB SCH (13:57)
[2021-07-23] MEDS ORDERED: diphenhydrAMINE 25 MG in Sodium Chloride 0.9% 50 ML IVPB PRN (16:05)
[2021-07-23] MEDS ORDERED: Morphine 4 MG/ML VIAL SLOW IVP PRN (17:54)
[2021-07-23] MEDS ORDERED: Digoxin 0.5 MG/2 ML AMP SLOW IVP SCH ×3 (18:00→22:00)
[2021-07-23] MEDS ORDERED: Morphine 4 MG/ML VIAL SLOW IVP SCH (18:00)
[2021-07-23] MEDS: Sodium Chloride 0.9% 1,000 ML IV SCH (18:59)
[2021-07-23] MEDS: Famotidine/PF 20 mg/2ml Vial SLOW IVP SCH (21:36)
[2021-07-24 04:32] LABS: Hemoglobin 11.8 g/dL (12.0-16.0); Mean Corpuscular HGB CONC 32.6 g/dL (32.0-36.0); Mean Corpuscular Hemoglobin 30.5 pg (27.0-31.0); Mean Corpuscular Volume 93.7 fL (78.0-98.0); Mean Platelet Volume 9.5 fL (7.4-10.4); Platelet Count 207 thou/uL (130-400); RBC Distribution Width 13.3 % (11.5-14.5); Red Blood Cell (RBC) Count 3.88 mill/uL (4.20-5.40); White Blood Cell (WBC) Count 19.9 thou/uL (4.8-10.8)
[2021-07-24] MEDS: Cefepime 1 GM in Sodium Chloride 0.9% 100 ML IVPB SCH ×2 (04:40→16:26)
[2021-07-24 04:52] LABS: Vancomycin, Trough 20.8 ug/mL
[2021-07-24 04:54] LABS: ALT (SGPT) 10 U/L (8-55); AST (SGOT) 14 U/L (5-34); Albumin 3.1 g/dL (3.4-4.8); Alkaline Phosphatase 81 U/L (40-110); Anion Gap 15 mmol/L (10-20); BUN (Urea Nitrogen) 46 mg/dL (9.8-20.1); Bilirubin, Total 2.2 mg/dL (0.2-1.2); Calc. Creatinine Clearance 57 mL/min (70-130); Calcium 9.1 mg/dL (7.8-10.44); Carbon Dioxide 18 mmol/L (23-31); Cardiac Risk 2.6 (Less than 4.5); Chloride 113 mmol/L (98-107); Cholesterol 167 mg/dl (< 200 Desired); Globulin 3.7 g/dL (2.4-3.5); Glucose 132 mg/dL (83-110); HDL Cholesterol 64 mg/dL (>60 Neg Risk); LDL Cholesterol, Calculated 86 mg/dL; Potassium 3.6 mmol/L (3.5-5.1); Protein, Total 6.8 g/dL (5.8-8.1); Sodium 142 mmol/L (136-145); Triglycerides 87 mg/dL (Less than 150)
[2021-07-24 04:58] LABS: Band 12 % (5-11); Lymphocytes 5 % (21-51); MDiff Complete? YES; Monocytes 3 % (0-10); Neutrophil 80 % (42-75)
[2021-07-24] MEDS: Vancomycin 1.5 GRAM/300 ML BAG 1.5 GM in Premix Bag 1 BAG IVPB SCH (05:41)
[2021-07-24] MEDS: Labetalol HCl 100 MG/20 ML VIAL SLOW IVP PRN (08:28)
[2021-07-24] MEDS: VANCOMYCIN 1.25 GM/250 ML BAG 1.25 GM in Premix Bag 1 BAG IVPB SCH (08:46)
[2021-07-24] MEDS ORDERED: Digoxin 0.5 MG/2 ML AMP SLOW IVP SCH (09:00)
[2021-07-24] MEDS: Sodium Chloride 0.45% 1,000 ML IV SCH (12:16)
[2021-07-24] MEDS ORDERED: Sodium Chloride 0.9% 1,000 ML IV SCH (13:30)
[2021-07-24] MEDS: Diltiazem HCl 125 MG, Admixture Fee 1 EACH in Sodium Chloride 0.9% 100 ML IVPB SCH (14:55)
[2021-07-24] MEDS: Amiodarone 200 MG TAB PO SCH ×2 (15:29→20:16)
[2021-07-24] MEDS: Acetaminophen 325 MG TAB PO PRN (20:15)
[2021-07-24] MEDS: Famotidine/PF 20 mg/2ml Vial SLOW IVP SCH (20:16)
[2021-07-25] MEDS: Sodium Chloride 0.45% 1,000 ML IV SCH ×2 (00:58→15:58)
[2021-07-25] MEDS: Cefepime 1 GM in Sodium Chloride 0.9% 100 ML IVPB SCH ×2 (04:01→17:14)
[2021-07-25] MEDS: HYDROcodone/Acetaminophen 5/325 mg Tablet PO PRN (04:17)
[2021-07-25 06:24] LABS: Anion Gap 12 mmol/L (10-20); BUN (Urea Nitrogen) 53 mg/dL (9.8-20.1); Calc. Creatinine Clearance 57 mL/min (70-130); Calcium 9.1 mg/dL (7.8-10.44); Carbon Dioxide 19 mmol/L (23-31); Chloride 114 mmol/L (98-107); Glucose 129 mg/dL (83-110); Potassium 3.5 mmol/L (3.5-5.1); Sodium 141 mmol/L (136-145); Vancomycin, Random 28.1 ug/mL (See Comment)
[2021-07-25] MEDS ORDERED: VANCOMYCIN 1.25 GM/250 ML BAG 1.25 GM in Premix Bag 1 BAG IVPB SCH (08:30)
[2021-07-25] MEDS: Amiodarone 200 MG TAB PO SCH ×3 (08:30→21:02)
[2021-07-25] MEDS: VANCOMYCIN 1.25 GM/250 ML BAG 1.25 GM in Premix Bag 1 BAG IVPB SCH (08:30)
[2021-07-25] MEDS ORDERED: FLU VACC QS2021-22(65YR UP)/PF 240 MCG/0.7 ML SYRINGE IM ONE (09:00)
[2021-07-25 09:05] LABS: Band 11 % (5-11); Eosinophils 2 % (0-10); Hemoglobin 11.1 g/dL (12.0-16.0); Lymphocytes 7 % (21-51); MDiff Complete? YES; Mean Corpuscular Hemoglobin 30.5 pg (27.0-31.0); Mean Corpuscular Volume 92.3 fL (78.0-98.0); Mean Platelet Volume 10.5 fL (7.4-10.4); Monocytes 6 % (0-10); Neutrophil 70 % (42-75); Platelet Count 209 thou/uL (130-400); Platelet Morphology Comment Appears Adequate; RBC Morphology Normal; Reactive Lymphocytes 3 % (0-10); Red Blood Cell (RBC) Count 3.63 mill/uL (4.20-5.40); White Blood Cell (WBC) Count 15.6 thou/uL (4.8-10.8)
[2021-07-25 12:28] LABS: Phosphorus 2.7 mg/dL (2.3-4.7)
[2021-07-25] MEDS: Acetaminophen 325 MG TAB PO PRN (21:01)
[2021-07-25] MEDS: Famotidine/PF 20 mg/2ml Vial SLOW IVP SCH (21:02)
[2021-07-25] MEDS: Atorvastatin Calcium 20 MG TAB PO SCH (21:02)
[2021-07-25] MEDS ORDERED: Albuterol Sulfate 2.5 mg/3 ml Neb NEB PRN (21:32)
[2021-07-25] MEDS ORDERED: Furosemide 40 MG/4 ML VIAL SLOW IVP SCH (22:30)
[2021-07-26] MEDS: Labetalol HCl 100 MG/20 ML VIAL SLOW IVP PRN ×2 (01:16→22:37)
[2021-07-26] MEDS: Melatonin 3 MG TAB PO SCH ×2 (02:17→02:23)
[2021-07-26] MEDS: HYDROcodone/Acetaminophen 5/325 mg Tablet PO PRN (02:23)
[2021-07-26] MEDS: Cefepime 1 GM in Sodium Chloride 0.9% 100 ML IVPB SCH ×2 (04:35→15:57)
[2021-07-26] MEDS: Amiodarone 200 MG TAB PO SCH ×3 (08:30→22:17)
[2021-07-26 13:48] LABS: Anion Gap 13 mmol/L (10-20); BUN (Urea Nitrogen) 56 mg/dL (9.8-20.1); Calc. Creatinine Clearance 58 mL/min (70-130); Calcium 8.9 mg/dL (7.8-10.44); Carbon Dioxide 19 mmol/L (23-31); Chloride 111 mmol/L (98-107); Glucose 112 mg/dL (83-110); Magnesium 1.8 mg/dL (1.6-2.6); Potassium 4.3 mmol/L (3.5-5.1); Sodium 139 mmol/L (136-145)
[2021-07-26] MEDS ORDERED: Amlodipine 5 MG TAB PO SCH (15:45)
[2021-07-26] MEDS: diphenhydrAMINE 30 GM TUBE TOP PRN (15:57)
[2021-07-26] MEDS: Atorvastatin Calcium 20 MG TAB PO SCH (22:17)
[2021-07-26] MEDS: Famotidine/PF 20 mg/2ml Vial SLOW IVP SCH (22:18)
[2021-07-26] MEDS ORDERED: Melatonin 3 MG TAB PO PRN (22:48)
[2021-07-26] MEDS ORDERED: Electrolyte Replacement Protocol 1 EACH FS PRN (23:00)
[2021-07-27] MEDS: HYDROcodone/Acetaminophen 5/325 mg Tablet PO PRN ×2 (00:36→09:31)
[2021-07-27] MEDS ORDERED: Magnesium 2 GM/50 ML 2 GM in Premix Bag 1 BAG IVPB SCH (01:30)
[2021-07-27] MEDS: Labetalol HCl 100 MG/20 ML VIAL SLOW IVP PRN ×4 (05:08→23:12)
[2021-07-27 06:26] LABS: Hemoglobin 10.8 g/dL (12.0-16.0); Mean Corpuscular HGB CONC 33.5 g/dL (32.0-36.0); Mean Corpuscular Hemoglobin 30.8 pg (27.0-31.0); Mean Corpuscular Volume 91.8 fL (78.0-98.0); Platelet Count 234 thou/uL (130-400); RBC Distribution Width 13.2 % (11.5-14.5); Red Blood Cell (RBC) Count 3.51 mill/uL (4.20-5.40); White Blood Cell (WBC) Count 11.7 thou/uL (4.8-10.8)
[2021-07-27 06:47] LABS: ALT (SGPT) 12 U/L (8-55); AST (SGOT) 14 U/L (5-34); Albumin 2.7 g/dL (3.4-4.8); Alkaline Phosphatase 81 U/L (40-110); Anion Gap 12 mmol/L (10-20); BUN (Urea Nitrogen) 53 mg/dL (9.8-20.1); Bilirubin, Total 0.6 mg/dL (0.2-1.2); Calc. Creatinine Clearance 60 mL/min (70-130); Calcium 8.7 mg/dL (7.8-10.44); Carbon Dioxide 23 mmol/L (23-31); Chloride 111 mmol/L (98-107); Globulin 3.3 g/dL (2.4-3.5); Glucose 116 mg/dL (83-110); Magnesium 2.2 mg/dL (1.6-2.6); Potassium 4.8 mmol/L (3.5-5.1); Sodium 141 mmol/L (136-145)
[2021-07-27 07:50] LABS: Band 2 % (5-11); Eosinophils 6 % (0-10); Lymphocytes 12 % (21-51); MDiff Complete? YES; Monocytes 8 % (0-10); Myelocyte 2 % (0-0); Neutrophil 70 % (42-75); Platelet Morphology Comment Appears Adequate; RBC Morphology Normal
[2021-07-27] MEDS ORDERED: Amlodipine 5 MG TAB PO SCH (09:00)
[2021-07-27] MEDS: Amiodarone 200 MG TAB PO SCH ×3 (09:30→20:34)
[2021-07-27] MEDS: Amlodipine 10 MG TAB PO SCH (09:31)
[2021-07-27] MEDS: hydrALAZINE 20 MG/ML VIAL SLOW IVP PRN ×2 (10:28→20:34)
[2021-07-27] MEDS: diphenhydrAMINE 30 GM TUBE TOP PRN (10:39)
[2021-07-27] MEDS: cefTRIAXone\\ROCEPHIN 2 GM in Sodium Chloride 0.9% 100 ML IVPB SCH (11:34)
[2021-07-27] MEDS ORDERED: cloNIDine 0.1 MG TAB PO SCH (12:15)
[2021-07-27] MEDS: Atorvastatin Calcium 20 MG TAB PO SCH (20:34)
[2021-07-27] MEDS: Acetaminophen 325 MG TAB PO PRN (20:41)
[2021-07-28] MEDS: Scopolamine 1.5 mg/72 hour Patch TD SCH (01:32)
[2021-07-28] MEDS: Labetalol HCl 100 MG/20 ML VIAL SLOW IVP PRN (06:32)
[2021-07-28] MEDS: hydrALAZINE 20 MG/ML VIAL SLOW IVP PRN ×3 (08:10→16:39)
[2021-07-28] MEDS: Amiodarone 200 MG TAB PO SCH ×3 (08:11→20:29)
[2021-07-28] MEDS: Amlodipine 10 MG TAB PO SCH (08:11)
[2021-07-28] MEDS: cefTRIAXone\\ROCEPHIN 2 GM in Sodium Chloride 0.9% 100 ML IVPB SCH (08:17)
[2021-07-28 08:31] LABS: ALT (SGPT) 15 U/L (8-55); AST (SGOT) 21 U/L (5-34); Albumin 2.9 g/dL (3.4-4.8); Alkaline Phosphatase 95 U/L (40-110); Anion Gap 14 mmol/L (10-20); BUN (Urea Nitrogen) 48 mg/dL (9.8-20.1); Bilirubin, Total 0.7 mg/dL (0.2-1.2); Calc. Creatinine Clearance 64 mL/min (70-130); Calcium 9.1 mg/dL (7.8-10.44); Carbon Dioxide 21 mmol/L (23-31); Chloride 109 mmol/L (98-107); Globulin 3.6 g/dL (2.4-3.5); Glucose 119 mg/dL (83-110); Potassium 5.4 mmol/L (3.5-5.1); Protein, Total 6.5 g/dL (5.8-8.1); Sodium 139 mmol/L (136-145)
[2021-07-28] MEDS ORDERED: Nitroglycerin 2% Ointment 1 INCH/1 GM Packet TOP SCH ×2 (11:28→14:00)
[2021-07-28] MEDS ORDERED: hydrALAZINE 20 MG/ML VIAL SLOW IVP SCH (11:30)
[2021-07-28] MEDS: NIFEdipine XL 60 MG TAB PO SCH ×2 (11:55→20:28)
[2021-07-28] MEDS: hydrALAZINE 25 MG TAB PER TUBE SCH ×2 (15:12→20:27)
[2021-07-28 15:13] LABS: SARS-CoV-2 PCR by NAA Not Detected (NotDetected)
[2021-07-28 16:15] LABS: Anion Gap 14 mmol/L (10-20); BUN (Urea Nitrogen) 48 mg/dL (9.8-20.1); Calc. Creatinine Clearance 66 mL/min (70-130); Calcium 9.3 mg/dL (7.8-10.44); Carbon Dioxide 23 mmol/L (23-31); Chloride 106 mmol/L (98-107); Glucose 133 mg/dL (83-110); Potassium 5.2 mmol/L (3.5-5.1); Sodium 138 mmol/L (136-145)
[2021-07-28] MEDS ORDERED: cloNIDine 0.1 MG TAB PER TUBE SCH (16:45)
[2021-07-28] MEDS: Nitroglycerin 2% Ointment 1 INCH/1 GM Packet TOP SCH (17:23)
[2021-07-28] MEDS: Atorvastatin Calcium 20 MG TAB PO SCH (20:29)
[2021-07-29] MEDS: Nitroglycerin 2% Ointment 1 INCH/1 GM Packet TOP SCH ×4 (02:02→17:44)
[2021-07-29] MEDS: cefTRIAXone\\ROCEPHIN 2 GM in Sodium Chloride 0.9% 100 ML IVPB SCH (08:48)
[2021-07-29 09:08] LABS: Anion Gap 15 mmol/L (10-20); BUN (Urea Nitrogen) 48 mg/dL (9.8-20.1); Calc. Creatinine Clearance 61 mL/min (70-130); Calcium 9.4 mg/dL (7.8-10.44); Carbon Dioxide 23 mmol/L (23-31); Chloride 106 mmol/L (98-107); Glucose 104 mg/dL (83-110); Potassium 5.2 mmol/L (3.5-5.1); Sodium 139 mmol/L (136-145)
[2021-07-29] MEDS ORDERED: PROPOFOL 200 MG/20 ML VIAL ONE (10:44)
[2021-07-29] MEDS ORDERED: Ondansetron HCl/PF 4 MG/2 ML Vial IVP PRN (11:04)
[2021-07-29] MEDS ORDERED: Promethazine HCl 25 MG/ML VIAL IVPB PRN (11:04)
[2021-07-29] MEDS ORDERED: Promethazine HCl 25 MG/ML VIAL IM PRN (11:04)
[2021-07-29] MEDS: Amiodarone 200 MG TAB PO SCH ×3 (11:56→21:03)
[2021-07-29] MEDS: NIFEdipine XL 60 MG TAB PO SCH ×2 (11:57→21:40)
[2021-07-29] MEDS: hydrALAZINE 25 MG TAB PER TUBE SCH ×3 (11:57→21:03)
[2021-07-29 14:42] VITALS: BMI 43.1
[2021-07-29] MEDS: Ondansetron PF 4 MG/2 ML Vial IVP PRN (15:17)
[2021-07-29] MEDS: hydrALAZINE 20 MG/ML VIAL SLOW IVP PRN (16:25)
[2021-07-29] MEDS: diphenhydrAMINE 30 GM TUBE TOP PRN (17:49)
[2021-07-29] MEDS: Atorvastatin Calcium 20 MG TAB PO SCH (21:03)
[2021-07-29] MEDS: Polyethylene Glycol 3350 17 GM Packet PER TUBE SCH (21:05)
[2021-07-29] MEDS: Bisacodyl 10 MG SUPP PR SCH (21:06)
[2021-07-29] MEDS: Acetaminophen 325 MG TAB PO PRN (21:08)
[2021-07-30] MEDS: Nitroglycerin 2% Ointment 1 INCH/1 GM Packet TOP SCH ×2 (00:30→06:28)
[2021-07-30] MEDS: Ondansetron PF 4 MG/2 ML Vial IVP PRN (04:10)
[2021-07-30 08:47] LABS: #Eosinphils 0.4 thou/uL (0.0-0.7); #Monocytes 1.7 thou/uL (0.11-0.59); #Neutrophils 12.6 thou/uL (1.40-6.50); %Basophils 0.2 % (0.0-1.0); %Eosinophils 2.6 % (0.0-10.0); %Lymphocytes 6.3 % (21.0-51.0); %Monocytes 10.8 % (0.0-10.0); %Neutrophils 80.1 % (42.0-75.0); Hemoglobin 11.1 g/dL (12.0-16.0); Mean Corpuscular HGB CONC 32.6 g/dL (32.0-36.0); Mean Corpuscular Hemoglobin 30.5 pg (27.0-31.0); Mean Corpuscular Volume 93.6 fL (78.0-98.0); Mean Platelet Volume 8.6 fL (7.4-10.4); Platelet Count 339 thou/uL (130-400); RBC Distribution Width 13.1 % (11.5-14.5); Red Blood Cell (RBC) Count 3.62 mill/uL (4.20-5.40); White Blood Cell (WBC) Count 15.7 thou/uL (4.8-10.8)
[2021-07-30] MEDS: Amiodarone 200 MG TAB PO SCH ×2 (09:02→21:17)
[2021-07-30] MEDS: cefTRIAXone\\ROCEPHIN 2 GM in Sodium Chloride 0.9% 100 ML IVPB SCH (09:03)
[2021-07-30] MEDS: hydrALAZINE 25 MG TAB PER TUBE SCH ×3 (09:03→21:19)
[2021-07-30] MEDS: NIFEdipine XL 60 MG TAB PO SCH ×2 (09:04→21:20)
[2021-07-30 09:06] LABS: Anion Gap 13 mmol/L (10-20); BUN (Urea Nitrogen) 54 mg/dL (9.8-20.1); Calc. Creatinine Clearance 57 mL/min (70-130); Calcium 9.2 mg/dL (7.8-10.44); Carbon Dioxide 25 mmol/L (23-31); Chloride 105 mmol/L (98-107); Glucose 100 mg/dL (83-110); Potassium 5.4 mmol/L (3.5-5.1); Sodium 138 mmol/L (136-145)
[2021-07-30] MEDS: Lansoprazole 3 MG/ML ORAL SUSPENSION PER TUBE SCH (09:07)
[2021-07-30] MEDS: Atorvastatin Calcium 20 MG TAB PO SCH (21:18)
[2021-07-30] MEDS: Bisacodyl 10 MG SUPP PR SCH (21:19)
[2021-07-30] MEDS: Polyethylene Glycol 3350 17 GM Packet PER TUBE SCH (21:20)
[2021-07-31] MEDS: Scopolamine 1.5 mg/72 hour Patch TD SCH (03:17)
[2021-07-31 09:12] LABS: Anion Gap 16 mmol/L (10-20); BUN (Urea Nitrogen) 60 mg/dL (9.8-20.1); Calc. Creatinine Clearance 55 mL/min (70-130); Calcium 9.4 mg/dL (7.8-10.44); Carbon Dioxide 23 mmol/L (23-31); Chloride 103 mmol/L (98-107); Glucose 97 mg/dL (83-110); Potassium 5.1 mmol/L (3.5-5.1); Sodium 137 mmol/L (136-145)
[2021-07-31] MEDS: cefTRIAXone\\ROCEPHIN 2 GM in Sodium Chloride 0.9% 100 ML IVPB SCH (10:03)
[2021-07-31] MEDS: Lansoprazole 3 MG/ML ORAL SUSPENSION PER TUBE SCH (10:03)
[2021-07-31] MEDS: NIFEdipine XL 60 MG TAB PO SCH ×2 (10:05→20:31)
[2021-07-31] MEDS: Amiodarone 200 MG TAB PO SCH ×2 (10:06→20:31)
[2021-07-31] MEDS: hydrALAZINE 25 MG TAB PER TUBE SCH ×3 (10:06→20:31)
[2021-07-31] MEDS: Atorvastatin Calcium 20 MG TAB PO SCH (20:32)
[2021-07-31] MEDS: Polyethylene Glycol 3350 17 GM Packet PER TUBE SCH (21:35)
[2021-08-01] MEDS: Lansoprazole 3 MG/ML ORAL SUSPENSION PER TUBE SCH (09:13)
[2021-08-01] MEDS: hydrALAZINE 25 MG TAB PER TUBE SCH ×3 (09:14→21:36)
[2021-08-01] MEDS: Amiodarone 200 MG TAB PO SCH ×2 (09:15→21:37)
[2021-08-01] MEDS: cefTRIAXone\\ROCEPHIN 2 GM in Sodium Chloride 0.9% 100 ML IVPB SCH (09:15)
[2021-08-01] MEDS: NIFEdipine XL 60 MG TAB PO SCH ×2 (09:15→21:37)
[2021-08-01] MEDS: Ondansetron PF 4 MG/2 ML Vial IVP PRN (12:14)
[2021-08-01] MEDS: Atorvastatin Calcium 20 MG TAB PO SCH (21:37)
[2021-08-01] MEDS: Polyethylene Glycol 3350 17 GM Packet PER TUBE SCH (21:38)
[2021-08-02] MEDS: cefTRIAXone\\ROCEPHIN 2 GM in Sodium Chloride 0.9% 100 ML IVPB SCH (08:27)
[2021-08-02] MEDS: Lansoprazole 3 MG/ML ORAL SUSPENSION PER TUBE SCH (08:29)
[2021-08-02] MEDS: hydrALAZINE 25 MG TAB PER TUBE SCH ×2 (08:29→14:28)
[2021-08-02] MEDS: Amiodarone 200 MG TAB PO SCH (08:29)
[2021-08-02] MEDS: NIFEdipine XL 60 MG TAB PO SCH (08:29)
[2021-08-02] MEDS: Ondansetron PF 4 MG/2 ML Vial IVP PRN (08:43)
[2021-08-02] MEDS: hydrALAZINE 20 MG/ML VIAL SLOW IVP PRN (11:26)
[2021-08-02 11:52] VITALS: BP 195/66; TEMP 98.3
== END 2021-08-02 15:16 | DRG 64 ==
LOC: ERS 23:01 → CCU 07-22 00:42 → NEURO 07-25 21:19 → SURG A 07-30 20:04
PROVIDERS: ADMIT Internal Medicine; ATTEND Internal Medicine
PROC: 0DH63UZ Insertion of Feeding Device into Stomach, Percutaneous Approach (ICD-10-PCS; principal; 2021-07-29)
DX: I62.9 Nontraumatic intracranial hemorrhage, unspecified (principal); A41.9 Sepsis, unspecified organism; G81.94 Hemiplegia, unspecified affecting left nondominant side; N17.9 Acute kidney failure, unspecified; I16.1 Hypertensive emergency; L03.115 Cellulitis of right lower limb; G93.49 Other encephalopathy; Z68.41 Body mass index [BMI] 40.0-44.9, adult; E87.2 Acidosis; Z20.822 Contact with and (suspected) exposure to COVID-19; Z23 Encounter for immunization; R29.707 NIHSS score 7; E78.5 Hyperlipidemia, unspecified; M19.90 Unspecified osteoarthritis, unspecified site; E66.01 Morbid (severe) obesity due to excess calories; R29.6 Repeated falls; I16.0 Hypertensive urgency; I48.0 Paroxysmal atrial fibrillation; N18.30 Chronic kidney disease, stage 3 unspecified; K21.9 Gastro-esophageal reflux disease without esophagitis; I12.9 Hypertensive chronic kidney disease with stage 1 through stage 4 chronic kidney disease, or unspecified chronic kidney disease; K26.9 Duodenal ulcer, unspecified as acute or chronic, without hemorrhage or perforation; K25.9 Gastric ulcer, unspecified as acute or chronic, without hemorrhage or perforation; R13.12 Dysphagia, oropharyngeal phase; J44.9 Chronic obstructive pulmonary disease, unspecified; D63.1 Anemia in chronic kidney disease; E87.5 Hyperkalemia; E83.42 Hypomagnesemia; E87.6 Hypokalemia; Z86.718 Personal history of other venous thrombosis and embolism; Z79.01 Long term (current) use of anticoagulants; Z88.8 Allergy status to other drugs, medicaments and biological substances; Z90.710 Acquired absence of both cervix and uterus; Z90.49 Acquired absence of other specified parts of digestive tract; Z90.09 Acquired absence of other part of head and neck; Z98.890 Other specified postprocedural states
CPT/HCPCS: 36415; 36416; 70450; 71045; 74018; 80048; 80053; 80061; 80202; 81003; 81015; 83605; 83735; 83880; 84100; 85025; 85610; 85730; 86850; 86900; 86901; 87040; 87804; 93005; 93010; J0360; J0692; J0696; J1160; J1200; J1940; J2270; J2405; J2704; J3010; J3370; J3475; J3490; J7030; J7050; J7168; S0028; U0002; U0003; U0005

== ENCOUNTER 2022-04-21 00:06 | Inpatient (IN) | payer OTHER ==
[2022-04-21 01:07] LABS: #Eosinphils 0.1 thou/uL (0.0-0.7); #Lymphocytes 0.7 thou/uL (1.20-3.40); #Neutrophils 10.1 thou/uL (1.40-6.50); %Eosinophils 1.1 % (0.0-10.0); %Lymphocytes 5.7 % (21.0-51.0); %Monocytes 8.3 % (0.0-10.0); %Neutrophils 84.9 % (42.0-75.0); Hemoglobin 12.7 g/dL (12.0-16.0); Mean Corpuscular HGB CONC 32.7 g/dL (32.0-36.0); Mean Corpuscular Hemoglobin 30.9 pg (27.0-31.0); Mean Corpuscular Volume 94.6 fL (78.0-98.0); Mean Platelet Volume 9.2 fL (7.4-10.4); Platelet Count 186 thou/uL (130-400); RBC Distribution Width 13.8 % (11.5-14.5); White Blood Cell (WBC) Count 11.9 thou/uL (4.8-10.8)
[2022-04-21 01:27] LABS: ALT (SGPT) Less than 7 U/L (8-55); AST (SGOT) 12 U/L (5-34); Albumin 3.7 g/dL (3.4-4.8); Alkaline Phosphatase 100 U/L (40-110); Anion Gap 18 mmol/L (10-20); BUN (Urea Nitrogen) 38 mg/dL (9.8-20.1); Bilirubin, Total 1.1 mg/dL (0.2-1.2); CK (CPK) 29 U/L (29-168); Calc. Creatinine Clearance 0 mL/min (70-130); Calcium 9.5 mg/dL (7.8-10.44); Carbon Dioxide 20 mmol/L (23-31); Chloride 105 mmol/L (98-107); Estimated GFR 36; Globulin 3.1 g/dL (2.4-3.5); Glucose 102 mg/dL (83-110); Potassium 3.5 mmol/L (3.5-5.1); Protein, Total 6.8 g/dL (5.8-8.1); Sodium 139 mmol/L (136-145)
[2022-04-21] MEDS ORDERED: Morphine 4 MG/ML VIAL ONE (01:37)
[2022-04-21 01:49] LABS: CKMB 1.2 ng/mL (0-6.6)
[2022-04-21] MEDS ORDERED: Sodium Chloride 0.9% 500 ML IV SCH (04:15)
[2022-04-21] MEDS ORDERED: Morphine 2 MG/ML VIAL SLOW IVP PRN (04:24)
[2022-04-21 04:47] LABS: PTT 29.1 sec (22.9-36.1); Prothrombin Time 13.7 sec (12.0-14.7)
[2022-04-21] MEDS ORDERED: Bisacodyl 10 MG SUPP PR PRN (08:55)
[2022-04-21] MEDS ORDERED: TETANUS, DIPHTHERIA TOX,ADULT (TDVAX) 0.5 ML VIAL IM ONE (09:00)
[2022-04-21] MEDS ORDERED: Famotidine/PF 20 mg/2ml Vial SLOW IVP SCH (09:00)
[2022-04-21 09:55] LABS: Bilirubin Negative (Negative); Blood, Urine Negative (Negative); Clarity Turbid (Clear); Glucose, Urine (Dipstick) Normal (Negative); Ketone, Urine Negative (Negative); Leukocyte Negative Leu/uL (Negative); Nitrite Negative (Negative); Protein, Urine (Dipstick) 20 mg/dL (Neg-Trace); Specific Gravity, Urine 1.023 (1.002-1.036)
[2022-04-21] MEDS ORDERED: Iopamidol-370 76% 500 ML 1 ML ONE (10:06)
[2022-04-21] MEDS ORDERED: Famotidine/PF 20 mg/2ml Vial ONE (10:37)
[2022-04-21] MEDS ORDERED: Potassium Phosphate 30 MMOL in Sodium Chloride 0.9% 250 ML 250 ML IVPB SCH (13:00)
[2022-04-21 14:47] LABS: Troponin I 0.033 ng/mL (< 0.028)
[2022-04-21] MEDS ORDERED: Mineral Oil ENEMA PR SCH (15:00)
[2022-04-21] MEDS: Acetaminophen 500 MG TAB PO SCH ×3 (15:39→17:08)
[2022-04-21] MEDS: Polyethylene Glycol 3350 17 GM Packet PO SCH (15:40)
[2022-04-21] MEDS: Lansoprazole 3 MG/ML ORAL SUSPENSION PER TUBE SCH (15:40)
[2022-04-21] MEDS: Senokot S 8.6-50 MG TAB PO SCH ×2 (15:41→21:25)
[2022-04-21] MEDS: Ondansetron PF 4 MG/2 ML Vial IVP PRN ×2 (17:08→22:36)
[2022-04-21 19:41] VITALS: BMI 32.3
[2022-04-21] MEDS: Atorvastatin Calcium 40 MG TAB PO SCH (21:25)
[2022-04-21] MEDS: NIFEdipine XL 60 MG TAB PO SCH (21:25)
[2022-04-21] MEDS ORDERED: Scopolamine 1.5 mg/72 hour Patch TOP SCH (22:30)
[2022-04-22] MEDS: Acetaminophen 500 MG TAB PO SCH ×2 (01:20→05:36)
[2022-04-22] MEDS ORDERED: Promethazine HCl 12.5 MG in Sodium Chloride 0.9% 50 ML IVPB PRN (03:48)
[2022-04-22 04:17] LABS: Bacteria/HPF None Seen HPF (None Seen); Bilirubin Negative (Negative); Blood, Urine 2+ (Negative); Clarity Turbid (Clear); Glucose, Urine (Dipstick) Normal (Negative); Ketone, Urine Negative (Negative); Leukocyte 250 Leu/uL (Negative); Nitrite Negative (Negative); Protein, Urine (Dipstick) 20 mg/dL (Neg-Trace); RBC/HPF Greater than 50 HPF (0-3); Renal Epithelial 0-3 HPF (None Seen); Specific Gravity, Urine 1.036 (1.002-1.036); Squamous Epithelial 0-3 HPF (0-3); Urobilinogen Normal mg/dL (Less than 2); WBC/HPF Greater than 50 HPF (0-3)
[2022-04-22 04:19] LABS: Urine Culture Reflex Yes Yes
[2022-04-22 05:55] LABS: #Lymphocytes 0.4 thou/uL (1.20-3.40); #Monocytes 0.9 thou/uL (0.11-0.59); #Neutrophils 14.4 thou/uL (1.40-6.50); %Eosinophils 0.1 % (0.0-10.0); %Lymphocytes 2.7 % (21.0-51.0); %Monocytes 5.9 % (0.0-10.0); %Neutrophils 91.4 % (42.0-75.0); Mean Corpuscular HGB CONC 32.2 g/dL (32.0-36.0); Mean Corpuscular Hemoglobin 31.1 pg (27.0-31.0); Mean Corpuscular Volume 96.7 fL (78.0-98.0); Mean Platelet Volume 9.5 fL (7.4-10.4); Platelet Count 196 thou/uL (130-400); RBC Distribution Width 13.8 % (11.5-14.5); Red Blood Cell (RBC) Count 3.86 mill/uL (4.20-5.40); White Blood Cell (WBC) Count 15.8 thou/uL (4.8-10.8)
[2022-04-22 06:01] LABS: Phosphorus 3.6 mg/dL (2.3-4.7)
[2022-04-22 07:59] LABS: Anion Gap 18 mmol/L (10-20); BUN (Urea Nitrogen) 36 mg/dL (9.8-20.1); Calc. Creatinine Clearance 35 mL/min (70-130); Calcium 9.1 mg/dL (7.8-10.44); Carbon Dioxide 19 mmol/L (23-31); Chloride 107 mmol/L (98-107); Estimated GFR 39; Glucose 96 mg/dL (83-110); Potassium 4.4 mmol/L (3.5-5.1); Sodium 140 mmol/L (136-145)
[2022-04-22] MEDS ORDERED: Amiodarone 200 MG TAB PO SCH (09:00)
[2022-04-22] MEDS: Ondansetron PF 4 MG/2 ML Vial IVP PRN ×3 (09:26→21:03)
[2022-04-22] MEDS: Senokot S 8.6-50 MG TAB PO SCH ×2 (09:26→21:11)
[2022-04-22] MEDS: Amiodarone 200 MG TAB PO SCH (09:26)
[2022-04-22] MEDS: NIFEdipine XL 60 MG TAB PO SCH ×2 (09:27→21:07)
[2022-04-22] MEDS: Polyethylene Glycol 3350 17 GM Packet PO SCH (09:27)
[2022-04-22] MEDS: Lansoprazole 3 MG/ML ORAL SUSPENSION PER TUBE SCH (09:33)
[2022-04-22] MEDS: Bisacodyl 10 MG SUPP PR SCH ×2 (13:40→22:51)
[2022-04-22] MEDS: Sodium Chloride 0.9% 500 ML IV SCH (15:27)
[2022-04-22] MEDS ORDERED: Fleet Enema 133 ML BOT PR SCH (16:00)
[2022-04-22] MEDS ORDERED: cefTRIAXone\\ROCEPHIN 2 GM in Sodium Chloride 0.9% 100 ML IVPB SCH (16:00)
[2022-04-22] MEDS: Apixaban 5 MG TAB PO SCH (21:06)
[2022-04-22] MEDS: Atorvastatin Calcium 40 MG TAB PO SCH (22:50)
[2022-04-23] MEDS: Sodium Chloride 0.9% 500 ML IV SCH ×3 (05:27→11:57)
[2022-04-23] MEDS: Bisacodyl 10 MG SUPP PR SCH ×3 (05:29→23:17)
[2022-04-23 05:58] LABS: #Eosinphils 0.1 thou/uL (0.0-0.7); #Lymphocytes 0.8 thou/uL (1.20-3.40); #Monocytes 0.9 thou/uL (0.11-0.59); #Neutrophils 8.2 thou/uL (1.40-6.50); %Basophils 0.1 % (0.0-1.0); %Eosinophils 1.1 % (0.0-10.0); %Monocytes 9.1 % (0.0-10.0); %Neutrophils 81.7 % (42.0-75.0); Hemoglobin 11.4 g/dL (12.0-16.0); Mean Corpuscular HGB CONC 31.9 g/dL (32.0-36.0); Mean Corpuscular Hemoglobin 30.8 pg (27.0-31.0); Mean Corpuscular Volume 96.6 fL (78.0-98.0); Mean Platelet Volume 9.4 fL (7.4-10.4); Platelet Count 216 thou/uL (130-400); RBC Distribution Width 13.8 % (11.5-14.5); Red Blood Cell (RBC) Count 3.71 mill/uL (4.20-5.40); White Blood Cell (WBC) Count 10.1 thou/uL (4.8-10.8)
[2022-04-23 06:14] LABS: Anion Gap 16 mmol/L (10-20); BUN (Urea Nitrogen) 33 mg/dL (9.8-20.1); Calc. Creatinine Clearance 40 mL/min (70-130); Calcium 9.1 mg/dL (7.8-10.44); Carbon Dioxide 22 mmol/L (23-31); Chloride 110 mmol/L (98-107); Estimated GFR 47; Glucose 81 mg/dL (83-110); Magnesium 1.9 mg/dL (1.6-2.6); Phosphorus 2.6 mg/dL (2.3-4.7); Potassium 3.6 mmol/L (3.5-5.1); Sodium 144 mmol/L (136-145)
[2022-04-23] MEDS: Polyethylene Glycol 3350 17 GM Packet PO SCH (09:44)
[2022-04-23] MEDS: Apixaban 5 MG TAB PO SCH ×2 (09:45→22:06)
[2022-04-23] MEDS: NIFEdipine XL 60 MG TAB PO SCH ×2 (09:45→22:04)
[2022-04-23] MEDS: Senokot S 8.6-50 MG TAB PO SCH ×2 (09:45→22:05)
[2022-04-23] MEDS: Amiodarone 200 MG TAB PO SCH (09:46)
[2022-04-23] MEDS: Ondansetron PF 4 MG/2 ML Vial IVP PRN ×2 (10:49→22:04)
[2022-04-23] MEDS: Lansoprazole 3 MG/ML ORAL SUSPENSION PER TUBE SCH (11:58)
[2022-04-23] MEDS: Simethicone Chewable 80 MG TAB PO SCH ×2 (14:54→22:05)
[2022-04-23] MEDS ORDERED: Fleet Enema 133 ML BOT PR SCH (19:15)
[2022-04-23] MEDS: Atorvastatin Calcium 40 MG TAB PO SCH (22:06)
[2022-04-24] MEDS: Simethicone Chewable 80 MG TAB PO SCH ×4 (01:33→21:42)
[2022-04-24] MEDS ORDERED: Sodium Chloride 0.9% 1,000 ML IV SCH (02:45)
[2022-04-24 06:15] LABS: #Eosinphils 0.1 thou/uL (0.0-0.7); #Lymphocytes 0.8 thou/uL (1.20-3.40); #Monocytes 0.8 thou/uL (0.11-0.59); #Neutrophils 6.8 thou/uL (1.40-6.50); %Eosinophils 1.3 % (0.0-10.0); %Monocytes 9.6 % (0.0-10.0); %Neutrophils 80.1 % (42.0-75.0); Hemoglobin 10.5 g/dL (12.0-16.0); Mean Corpuscular HGB CONC 31.8 g/dL (32.0-36.0); Mean Corpuscular Volume 97.3 fL (78.0-98.0); Platelet Count 219 thou/uL (130-400); RBC Distribution Width 13.7 % (11.5-14.5); Red Blood Cell (RBC) Count 3.38 mill/uL (4.20-5.40); White Blood Cell (WBC) Count 8.5 thou/uL (4.8-10.8)
[2022-04-24] MEDS: Bisacodyl 10 MG SUPP PR SCH ×2 (06:38→09:04)
[2022-04-24 07:01] LABS: Anion Gap 12 mmol/L (10-20); BUN (Urea Nitrogen) 24 mg/dL (9.8-20.1); Calc. Creatinine Clearance 55 mL/min (70-130); Calcium 8.7 mg/dL (7.8-10.44); Carbon Dioxide 23 mmol/L (23-31); Chloride 112 mmol/L (98-107); Estimated GFR 69; Glucose 84 mg/dL (83-110); Magnesium 1.8 mg/dL (1.6-2.6); Phosphorus 1.9 mg/dL (2.3-4.7); Potassium 3.2 mmol/L (3.5-5.1); Sodium 144 mmol/L (136-145)
[2022-04-24] MEDS ORDERED: Potassium Phosphate 30 MMOL in Sodium Chloride 0.9% 250 ML 250 ML IVPB SCH (08:00)
[2022-04-24] MEDS: Polyethylene Glycol 3350 17 GM Packet PO SCH (09:02)
[2022-04-24] MEDS: Lansoprazole 3 MG/ML ORAL SUSPENSION PER TUBE SCH (09:02)
[2022-04-24] MEDS: Senokot S 8.6-50 MG TAB PO SCH ×2 (09:03→21:43)
[2022-04-24] MEDS: NIFEdipine XL 60 MG TAB PO SCH ×2 (09:03→21:42)
[2022-04-24] MEDS: Apixaban 5 MG TAB PO SCH ×2 (09:03→21:43)
[2022-04-24] MEDS: Amiodarone 200 MG TAB PO SCH (09:04)
[2022-04-24] MEDS: Sodium Chloride 0.9% 1,000 ML IV SCH (09:04)
[2022-04-24] MEDS ORDERED: GoLYTELY 4,000 ml Bottle PO SCH (12:15)
[2022-04-24] MEDS: Melatonin 3 MG TAB PO PRN (21:43)
[2022-04-24] MEDS: Atorvastatin Calcium 40 MG TAB PO SCH (21:43)
[2022-04-24] MEDS: Ondansetron PF 4 MG/2 ML Vial IVP PRN (22:03)
[2022-04-25] MEDS: Simethicone Chewable 80 MG TAB PO SCH ×4 (03:08→20:26)
[2022-04-25] MEDS: NIFEdipine XL 60 MG TAB PO SCH ×2 (09:12→20:26)
[2022-04-25] MEDS: Apixaban 5 MG TAB PO SCH ×2 (09:12→20:28)
[2022-04-25] MEDS: Amiodarone 200 MG TAB PO SCH (09:12)
[2022-04-25] MEDS: Senokot S 8.6-50 MG TAB PO SCH ×2 (09:12→20:28)
[2022-04-25] MEDS: Polyethylene Glycol 3350 17 GM Packet PO SCH (09:12)
[2022-04-25] MEDS: Sodium Chloride 0.9% 1,000 ML IV SCH (09:13)
[2022-04-25] MEDS ORDERED: Mineral Oil ENEMA PR SCH (11:15)
[2022-04-25] MEDS: Lansoprazole 3 MG/ML ORAL SUSPENSION PER TUBE SCH (11:54)
[2022-04-25] MEDS: hydrALAZINE 20 MG/ML VIAL SLOW IVP PRN (15:44)
[2022-04-25] MEDS ORDERED: Potassium Phosphate 30 MMOL in Sodium Chloride 0.9% 250 ML 250 ML IVPB SCH (19:00)
[2022-04-25] MEDS ORDERED: Magnesium 2 GM/50 ML(in water) 3 GM in Premix Bag 1 BAG IVPB SCH (19:00)
[2022-04-25] MEDS ORDERED: Lactated Ringer's 500 ML IV SCH (19:15)
[2022-04-25] MEDS ORDERED: Magnesium Sulfate 3 GM in Sodium Chloride 0.9% 100 ML IVPB SCH (19:15)
[2022-04-25] MEDS: Melatonin 3 MG TAB PO PRN (20:28)
[2022-04-25] MEDS: Ondansetron PF 4 MG/2 ML Vial IVP PRN (20:28)
[2022-04-25] MEDS: Atorvastatin Calcium 40 MG TAB PO SCH (20:28)
[2022-04-26] MEDS: Simethicone Chewable 80 MG TAB PO SCH ×2 (03:03→09:34)
[2022-04-26] MEDS: hydrALAZINE 20 MG/ML VIAL SLOW IVP PRN (03:13)
[2022-04-26 09:32] VITALS: TEMP 98.2
[2022-04-26] MEDS: Apixaban 5 MG TAB PO SCH (09:32)
[2022-04-26] MEDS: Polyethylene Glycol 3350 17 GM Packet PO SCH (09:32)
[2022-04-26] MEDS: NIFEdipine XL 60 MG TAB PO SCH (09:32)
[2022-04-26] MEDS: Lansoprazole 3 MG/ML ORAL SUSPENSION PER TUBE SCH (09:32)
[2022-04-26] MEDS: Senokot S 8.6-50 MG TAB PO SCH (09:34)
[2022-04-26] MEDS: Amiodarone 200 MG TAB PO SCH (09:34)
[2022-04-26 13:07] VITALS: BP 139/70
[2022-05-06] MEDS ORDERED: Amiodarone 200 MG TAB PO SCH (21:00)
[2022-05-21] MEDS ORDERED: Amiodarone 200 MG TAB PO SCH (09:00)
== END 2022-04-26 13:55 | DRG 65 ==
LOC: ERS 00:06 → ERHOLD 04:14 → SURG B 13:48
PROVIDERS: ADMIT Surgery; ATTEND Surgery
DX: I62.03 Nontraumatic chronic subdural hemorrhage (principal); Z66 Do not resuscitate; Z20.822 Contact with and (suspected) exposure to COVID-19; I82.411 Acute embolism and thrombosis of right femoral vein; N17.9 Acute kidney failure, unspecified; I82.431 Acute embolism and thrombosis of right popliteal vein; I82.811 Embolism and thrombosis of superficial veins of right lower extremity; N39.0 Urinary tract infection, site not specified; N18.9 Chronic kidney disease, unspecified; E87.6 Hypokalemia; K21.9 Gastro-esophageal reflux disease without esophagitis; E66.9 Obesity, unspecified; K59.09 Other constipation; G93.89 Other specified disorders of brain; D72.829 Elevated white blood cell count, unspecified; R77.8 Other specified abnormalities of plasma proteins; I60.9 Nontraumatic subarachnoid hemorrhage, unspecified; R33.9 Retention of urine, unspecified; Z68.32 Body mass index [BMI] 32.0-32.9, adult; Z86.718 Personal history of other venous thrombosis and embolism; Z88.8 Allergy status to other drugs, medicaments and biological substances; Z90.710 Acquired absence of both cervix and uterus; Z90.49 Acquired absence of other specified parts of digestive tract; Z90.89 Acquired absence of other organs; Z98.890 Other specified postprocedural states; Z86.73 Personal history of transient ischemic attack (TIA), and cerebral infarction without residual deficits; Z86.16 Personal history of COVID-19; Z79.899 Other long term (current) drug therapy
CPT/HCPCS: 36415; 70450; 70551; 71045; 74018; 74177; 80048; 80053; 81001; 81003; 82550; 82553; 83735; 83880; 84100; 84484; 85025; 85610; 85730; 87040; 87086; 93005; 93970; 96374; 97139; G0390; J0360; J0696; J2270; J2405; J2550; J3475; J3490; J7050; J7120; Q9967; S0028

== ENCOUNTER 2022-06-24 11:34 | Inpatient (IN) | payer OTHER ==
[2022-06-24] MEDS ORDERED: Acetaminophen 650 MG Suppository PR PRN (12:30)
[2022-06-24] MEDS ORDERED: diphenhydrAMINE 25 MG CAP PO PRN (12:30)
[2022-06-24] MEDS ORDERED: Ondansetron PF 4 MG/2 ML Vial IVP PRN (12:30)
[2022-06-24 12:31] VITALS: BMI 26.9
[2022-06-24] MEDS: Morphine 4 MG/ML VIAL SLOW IVP PRN ×2 (12:40→18:48)
[2022-06-24] MEDS: Lorazepam 2 MG/ML VIAL SLOW IVP PRN (12:43)
[2022-06-24] MEDS: Scopolamine 1.5 mg/72 hour Patch TOP PRN (12:44)
[2022-06-24] MEDS: Morphine 4 MG/ML VIAL SLOW IVP SCH (22:00)
[2022-06-25] MEDS: Morphine 4 MG/ML VIAL SLOW IVP PRN ×4 (01:18→13:49)
[2022-06-25] MEDS: Morphine 4 MG/ML VIAL SLOW IVP SCH ×2 (09:15→20:12)
[2022-06-25] MEDS: Lorazepam 2 MG/ML VIAL SLOW IVP PRN ×3 (09:16→22:37)
[2022-06-26] MEDS: Morphine 4 MG/ML VIAL SLOW IVP SCH ×2 (08:42→20:37)
[2022-06-27] MEDS: Morphine 4 MG/ML VIAL SLOW IVP SCH ×2 (10:10→20:01)
[2022-06-28] MEDS: Morphine 4 MG/ML VIAL SLOW IVP SCH ×2 (11:21→21:34)
[2022-06-29] MEDS: Morphine 4 MG/ML VIAL SLOW IVP SCH ×2 (09:09→20:16)
[2022-06-30] MEDS: Morphine 4 MG/ML VIAL SLOW IVP SCH ×2 (09:27→20:23)
[2022-06-30] MEDS: diphenhydrAMINE 50 MG/ML VIAL IVP PRN (20:24)
[2022-07-01] MEDS: Morphine 4 MG/ML VIAL SLOW IVP SCH ×2 (09:23→21:26)
[2022-07-01] MEDS: diphenhydrAMINE 50 MG/ML VIAL IVP PRN (21:25)
[2022-07-02] MEDS: Morphine 4 MG/ML VIAL SLOW IVP SCH ×2 (08:10→21:03)
[2022-07-02] MEDS: Lorazepam 2 MG/ML VIAL SLOW IVP PRN ×2 (08:15→19:10)
[2022-07-03] MEDS: Morphine 4 MG/ML VIAL SLOW IVP SCH ×2 (08:22→20:51)
[2022-07-03] MEDS: Lorazepam 2 MG/ML VIAL SLOW IVP PRN ×2 (08:31→20:52)
[2022-07-03] MEDS: Scopolamine 1.5 mg/72 hour Patch TOP PRN (09:31)
[2022-07-03] MEDS: Morphine 4 MG/ML VIAL SLOW IVP PRN (16:41)
[2022-07-04] MEDS: Morphine 4 MG/ML VIAL SLOW IVP SCH ×2 (10:41→20:55)
[2022-07-04] MEDS: Morphine 4 MG/ML VIAL SLOW IVP PRN (17:04)
[2022-07-05] MEDS: Morphine 4 MG/ML VIAL SLOW IVP SCH ×2 (08:50→21:16)
[2022-07-06] MEDS: Morphine 4 MG/ML VIAL SLOW IVP PRN (06:13)
[2022-07-06] MEDS: Morphine 4 MG/ML VIAL SLOW IVP SCH ×2 (08:39→21:01)
[2022-07-07] MEDS: Morphine 4 MG/ML VIAL SLOW IVP SCH ×2 (08:52→22:29)
[2022-07-07 20:26] VITALS: BP 50/27; TEMP 98.9
== END 2022-07-07 20:53 | disposition expired | DRG 951 ==
LOC: IMCU/EMU 11:34 → MSONC 06-25 14:21
PROVIDERS: ADMIT Family Medicine; ATTEND Family Medicine
DX: Z51.5 Encounter for palliative care (principal); A41.9 Sepsis, unspecified organism; I21.A1 Myocardial infarction type 2; K72.00 Acute and subacute hepatic failure without coma; D65 Disseminated intravascular coagulation [defibrination syndrome]; K55.9 Vascular disorder of intestine, unspecified; N17.9 Acute kidney failure, unspecified; M62.82 Rhabdomyolysis; F32.9 Major depressive disorder, single episode, unspecified; F41.9 Anxiety disorder, unspecified; I10 Essential (primary) hypertension; K52.89 Other specified noninfective gastroenteritis and colitis; I48.91 Unspecified atrial fibrillation; Z86.718 Personal history of other venous thrombosis and embolism; Z86.73 Personal history of transient ischemic attack (TIA), and cerebral infarction without residual deficits; Z79.01 Long term (current) use of anticoagulants
CPT/HCPCS: J1200; J2060; J2270